=== PATIENT | female | born 1950 | race Caucasian/White ===

== ENCOUNTER → 2019-09-03 09:04 | Outpatient (BNVA) | payer MEDICARE, OTHER, SELFPAY | PROVIDERS: Family Provider Nurse Practitioner; PCP Nurse Practitioner; Visit Provider Nurse Practitioner | DX: R39.9 Unspecified symptoms and signs involving the genitourinary system (principal); E78.2 Mixed hyperlipidemia; I10 Essential (primary) hypertension | CPT/HCPCS: 80053; 80061; 81003 ==

== ENCOUNTER → 2019-09-24 09:51 | Outpatient (BNVA) | payer MEDICARE, OTHER, SELFPAY | PROVIDERS: Family Provider Nurse Practitioner; PCP Nurse Practitioner; Visit Provider Nurse Practitioner | DX: R10.9 Unspecified abdominal pain (principal); R31.9 Hematuria, unspecified | CPT/HCPCS: 74018; 81000 ==

== ENCOUNTER 2019-09-25 08:10 | Inpatient (IN) | payer MEDICARE, OTHER, SELFPAY ==
[2019-09-25] VITALS (23 sets, daily range): BP systolic 109–165; BP diastolic 66–98; PULSE 69–115; RESP 13–24; TEMP 36.8–38.2; O2SAT 91–97; BMI 28.8
--- NOTE | 2019-09-25 | SCC_ITS ---
PROCEDURE DONE: Open-ended ureteral catheter used to inject a small amount of contrast showing no obvious S. 7 [place] by 26 cm double-pigtail stent without string 33.0 seconds of fluoroscopic guidance, for a cumulative dose of 8.31 mGy, was provided to Dr. Clement by the radiology department. C-arm images of the abdomen were saved for the patient's permanent record. EMELY
--- NOTE | 2019-09-25 08:22 | ED_ITS ---
HPI - GI Bleed General: Stated complaint: BLOOD IN PREMA, LOWER ABD PAIN Time Seen by Provider: 09/25/19 08:12 PFSH ED PFSH: Medical History Acid reflux Anxiety Continuous dependence on cigarette smoking Essential hypertension Mixed hyperlipidemia Surgical History History of bilateral tubal ligation age 36 History of hysterectomy for benign disease age 41 History of tonsillectomy age 19 Family History Sister Cancer breast Grandmother Myocardial infarct Grandfather Myocardial infarct Social History Smoking and tobacco status: former smoker Smoking risk assessment/counseling performed?: No Alcohol intake: never Desire information about alcohol rehabilitation?: No Counseling given: No Desire information about substance/drug rehabilitation?: No Counseling given: No Household members: spouse Marital status: Number of children: 3 History of recent travel: No Current gender identity: Female Discharge Plan Discharge Prescriptions: No Action aspirin [Aspir-81] 81 mg tablet,delayed release (DR/EC) 81 mg PO ONCE RF: 0 amlodipine 5 mg tablet 5 mg PO DAILY Qty: 90 RF: 1 famotidine [Pepcid] 40 mg tablet 40 mg PO DAILY Qty: 90 RF: 1 pravastatin 20 mg tablet 20 mg PO DAILY Qty: 90 RF: 1 sertraline 50 mg tablet 50 mg PO DAILY Qty: 90 RF: 1 telmisartan 80 mg tablet 80 mg PO DAILY Qty: 90 RF: 1 mupirocin 2 % ointment 1 applic TOPICAL BID Qty: 22 RF: 1 nitrofurantoin monohyd/m-cryst [Macrobid] 100 mg capsule 100 mg PO Q12H 7 Days Qty: 14 RF: 0 Coding Level of Care Code ED Silo Painter for Yesenia Chin
--- NOTE | 2019-09-25 08:31 | CT_ITS ---
WS: [id number] CT ABDOMEN AND PELVIS NONCONTRAST HISTORY: L flank/L pelvic pain; hematuria TECHNIQUE: Imaging performed through the abdomen and pelvis. Coronal and sagittal reformats are submi tted. All CT scans at [facility] use at least one of these dose optimization techniques: automated exposure control; mA and/or kV adjustment per patient size (includes targeted exams where d ose is matched to clinical indication); or iterative reconstruction. DLP: 1558.41 mGy.cm COMPARISON: None available. Lower thorax: Chronic emphysematous changes at the lung bases. Normal size heart. Small hiatal hernia . Liver: Liver is top normal size and hepatic steatosis. There are scattered hypodensities RIGHT lobe t he liver measures 2.9 cm. No bile duct dilatation. Gallbladder: Normally distended with a few stones present. No adjacent inflammation. Pancreas: Normal. Spleen: Normal. Adrenal glands: Bilateral adrenal nodules. Hounsfield units are decreased suggesting these are benign adenomata. Right kidney: Normal size kidney with moderate perinephric stranding. Nonobstructing calcifications i n the central renal pelvis. No ureteral calcification. Left kidney: Marked enlargement and perinephric stranding surrounding the LEFT kidney. Moderate dilat ation of the renal pelvis. There is mixed density within the renal pelvis suggesting probably some bl eeding and hematuria. There is significant periureteral stranding. No definite ureteral stone is iden tified. Significant change in caliber of the LEFT ureter at the L4-5 disc level. There are several calcifications overlying the psoas muscle which I believe are in the LEFT venous pl exus. Similar findings on the RIGHT side. Extensive atherosclerosis of aorta. There are small retroperitoneal lymph nodes. Majority of these lymph nodes are rounded the aorta just below the level of the renal artery and vein. Lymph nodes are less than 1 cm. GI tract: Normal appendix. Mild fecal retention and constipation. No obstruction. Numerous diverticul a throughout the sigmoid colon. Abdominal wall: Small fat-containing umbilical hernia. Pelvis: Minimally distended urinary bladder. No free fluid or adenopathy. Osseous structures: L4 anterolisthesis by 5 mm. Mild increase in the lumbar lordosis. Notified CODY Tripathi at 09/25/2019 9:[address]/CT kidney stone [id number] IMPRESSION: 1. Significant perinephric stranding and renal enlargement, edema and fluid schulz rrounding the LEFT kidney with moderate hydronephrosis. Increased density in th e renal pelvis and proximal ureter. Most likely due to blood within the urologi jamshid system. 2. Significant change in caliber of the LEFT ureter at the level of the L4-5 d isc space. No stone is identified. Possibility of a stricture, nonradiopaque st one or neoplasm should be considered. Increased density within the ureter could be blood or small fragments of stones. 3. There are several stones overlying the LEFT psoas muscle which I believe ar e venous related and not within the ureter. The ureter progresses just medial t o these calcifications. Also similar calcifications noted on the RIGHT side. 4. Additional bilateral nephrolithiasis. 5. Cholelithiasis. 6. Atherosclerosis aorta. 7. Significant sigmoid diverticulosis without acute diverticulitis.
--- NOTE | 2019-09-25 08:34 | ED_ITS ---
HPI - Female Genitourinary General: Chief complaint: Urogenital-Female Stated complaint: BLOOD IN PREMA, LOWER ABD PAIN Time Seen by Provider: 09/25/19 08:12 Source: patient Mode of arrival: ambulatory Limitations: no limitations History of Present Illness: HPI Narrative: Patient is a 68-year-old female who presents to ED today with a complaint of left lower abdominal/pelvic pain that began yesterday evening fairly suddenly. She states since pain has began she has noticed blood in her urine, urinary frequency and hesitancy. She tells me she does have a history of kidney stones however this felt slightly different. She is not having any changes to her bowel movements. She has not been running fevers. She complains of some nausea without vomiting. Onset (ago): hour(s) Severity: moderate Quality of pain: sharp Consistency: constant Vaginal discharge: none Vaginal bleeding: none Urinary symptoms: Difficulty Urinating, Frequency, Hematuria and Urgency Relieving factors: none Associated symptoms: Reports no associated symptoms, abdominal pain and nausea; Deny headache(s) or vaginal discharge Treatment prior to arrival: none Patient : No Review of Systems Const: Denies: fever(s), chills or body aches Card: Denies: chest pain Resp: Denies: dyspnea GI: Reports: abdominal pain and nausea; Denies: vomiting, diarrhea or change in bowel habits : Reports: difficulty voiding, urinary frequency, urinary hesitancy and hematuria; Denies: flank pain, dysuria, urinary urgency, vaginal odor, vaginal bleeding or vaginal discharge Musc: Denies: neck pain or back pain Neuro: Denies: headache(s) PFS ED PFSH: Medical History (Updated 09/25/19 @ 09:58 by CODY Tripathi) Acid reflux Anxiety Continuous dependence on cigarette smoking Essential hypertension Mixed hyperlipidemia Surgical History History of bilateral tubal ligation age 36 History of hysterectomy for benign disease age 41 History of tonsillectomy age 19 Family History Sister Cancer breast Grandmother Myocardial infarct Grandfather Myocardial infarct Social History Smoking and tobacco status: former smoker Smoking risk assessment/counseling performed?: No Alcohol intake: never Desire information about alcohol rehabilitation?: No Counseling given: No Desire information about substance/drug rehabilitation?: No Counseling given: No Household members: spouse Marital status: Number of children: 3 History of recent travel: No Current gender identity: Female Physical Exam Const: COMMON NORMALS: no acute distress, patient oriented x3, no limitations and alert Resp: COMMON NORMALS: normal respiratory effort and clear to auscultation bilaterally AUSCULTATION: clear to auscultation bilaterally Cardio: COMMON NORMALS: regular rate and regular rhythm RATE: regular rate RHYTHM: regular rhythm GI: COMMON NORMALS: Normal to inspection, nondistended, normoactive bowel sounds present, Soft to palpation, No hepatosplenomegaly present and no masses PALPATION: Yes Soft to palpation, Yes Tenderness to palpation present (GI) (L lower pelvis) and Yes No hepatosplenomegaly present : BLADDER/KIDNEY EXAM: Yes CVA tenderness (mild L) Back/Pelvis: GENERAL BACK: Yes CVA tenderness (mild L) Extremity: COMMON NORMALS: normal to inspection Neuro: COMMON NORMALS: patient oriented x3 SENSORIUM/ORIENTATION: Yes alert Skin: COMMON NORMALS: no rashes or lesions noted GENERAL SKIN EXAM: no rashes or lesions noted Course Consultations: Consultation #1: Dr. Clement-recommend admit to hospitalist and he will consult on patient Consultation #2: Dr. Jackson has spoken to Dr. Wells for admission Vital Signs: Vital signs: Vital Signs Temperature 98.8 F 09/25/19 08:14 Pulse Rate 95 09/25/19 09:29 Respiratory Rate 18 09/25/19 09:29 Blood Pressure 165/98 09/25/19 09:29 Pulse Oximetry 97 09/25/19 09:29 MDM - Female MDM Narrative: Medical decision making narrative: Patient's UA showing 3+ blood, 2+ leuks with too numerous to count WBCs. On patient's CT scan she has extensive enlargement, perinephric and periureteral stranding, and bleeding within her right renal pelvis. There appears to be a stricture in her left mid ureter. No definitive stone is visualized at this time. Spoke to Dr. Clement who will consult on patient. Dr. Wells is agreeable to admit patient. Lab Data: Labs: Lab Results 09/25/19 09/25/19 09/25/19 Range/Units 08:46 08:46 08:49 WBC 10.5 H (4.0-10.0) 10^3/ uL RBC 4.41 (4.1-5.3) 10^6/u L Hgb 13.9 (11.5-15.3) g/dL Hct 41.2 (37.0-47.0) % MCV 93.4 (81-99) fL MCH 31.5 (28.0-34.0) pg MCHC 33.7 (30.0-36.0) g/dL RDW 11.5 L (12.1-15.1) % Plt Count 223 (130-400) 10^3/c mm MPV 9.5 (7.4-10.4) fL Neut % (Auto) 85.8 % Lymph % (Auto) 7.9 % [place] % (Auto) 5.1 % Eos % (Auto) 0.1 % Baso % (Auto) 0.3 % Neut # (Auto) 9.02 H (1.8-7.7) 10^3/u L Lymph # (Auto) 0.8 (0.8-4.8) 10^3/u L [place] # (Auto) 0.5 (0.2-0.9) 10^3/u L Eos # (Auto) 0.0 (0.0-0.8) 10^3/u L Baso # (Auto) 0.0 (0.0-0.1) 10^3/u L Nucleated RBC % (a uto) 0 % Nucleated RBCs # 0.0 /100WBC Sodium 135 L (136-145) mmol/L Potassium 4.0 (3.5-5.1) mmol/L Chloride 101 (98-107) mmol/L Carbon Dioxide 20 L (22-29) mmol/L Anion Gap 18.0 (5-19) BUN 14 (8-23) mg/dL Creatinine 0.9 (0.5-0.9) mg/dL GFR Calculation 62.5 L (90-130) mL/min Glucose 168 H (65-115) mg/dL Calculated Osmolal ity 280 L (285-295) mOsm/k g Calcium 8.7 (8.5-10.5) mg/dL Total Bilirubin 1.1 (0.15-1.2) mg/dL AST 28 (0-32) U/L ALT 21 (0-33) U/L Alkaline Phosphata se 83 (35-105) IU/L Total Protein 7.6 (6.6-8.7) g/dL Albumin 4.4 (3.5-5.2) g/dL Globulin 3.2 (1.3-4.6) g/dL Urine Color Yellow (Yellow) Urine Appearance Cloudy (CLEAR) Urine pH 5 (5-7) Ur Specific Gravit y 1.015 (1.005-1.030) Urine Protein Neg (Negative) Urine Glucose (UA) Norm (Normal) Urine Ketones Negative (Negative) Urine Blood 3+ H (Negative) Urine Nitrate Negative (Negative) Urine Bilirubin Neg (NEGATIVE) Urine Urobilinogen Norm (Negative) mg/dL Ur Leukocyte Jolly ase 2+ H (Negative) Urine RBC 5-10 H (0-2) /hpf Urine WBC Too numerous to c nt H (0-5) /hpf Ur Squamous Epith Cells 5-10 H (0-5) Ur Transition Epit h Cell 0-4 /hpf Amorphous Sediment Not Reportable Urine Bacteria 1+ H (NONE) Imaging Data: CT Abd/Pel: Radiologist's impression: [place] [address] CT Scan Report Signed Patient: Patt Baptiste Unit #: [id number] : 1950 Age/Sex: 68 / F ADM Date: 09/25/19 Loc: ER Room/Bed: Attending Dr: Ordering Provider/Ordering MD: Susu Portillo Date of Service: 09/25/19 Procedure(s): CT kidney stone 13794 Accession Number(s): [id number] Report Number: [id number] WS: [id number] CT ABDOMEN AND PELVIS NONCONTRAST HISTORY: L flank/L pelvic pain; hematuria TECHNIQUE: Imaging performed through the abdomen and pelvis. Coronal and sagittal reformats are submitted. All CT scans at [facility] use at least one of these dose optimization techniques: automated exposure control; mA and/or kV adjustment per patient size (includes targeted exams where dose is matched to clinical indication); or iterative reconstruction. DLP: 1558.41 mGy.cm COMPARISON: None available. Lower thorax: Chronic emphysematous changes at the lung bases. Normal size heart. Small hiatal hernia. Liver: Liver is top normal size and hepatic steatosis. There are scattered hypodensities RIGHT lobe the liver measures 2.9 cm. No bile duct dilatation. Gallbladder: Normally distended with a few stones present. No adjacent inflammation. Pancreas: Normal. Spleen: Normal. Adrenal glands: Bilateral adrenal nodules. Hounsfield units are decreased suggesting these are benign adenomata. Right kidney: Normal size kidney with moderate perinephric stranding. Nonobstructing calcifications in the central renal pelvis. No ureteral calcification. Left kidney: Marked enlargement and perinephric stranding surrounding the LEFT kidney. Moderate dilatation of the renal pelvis. There is mixed density within the renal pelvis suggesting probably some bleeding and hematuria. There is significant periureteral stranding. No definite ureteral stone is identified. Significant change in caliber of the LEFT ureter at the L4-5 disc level. There are several calcifications overlying the psoas muscle which I believe are in the LEFT venous plexus. Similar findings on the RIGHT side. Extensive atherosclerosis of aorta. There are small retroperitoneal lymph nodes. Majority of these lymph nodes are rounded the aorta just below the level of the renal artery and vein. Lymph nodes are less than 1 cm. GI tract: Normal appendix. Mild fecal retention and constipation. No obstruc tion. Numerous diverticula throughout the sigmoid colon. Abdominal wall: Small fat-containing umbilical hernia. Pelvis: Minimally distended urinary bladder. No free fluid or adenopathy. Osseous structures: L4 anterolisthesis by 5 mm. Mild increase in the lumbar lordosis. Notified CODY Tripathi at 09/25/2019 9:[address]/CT kidney stone [id number] IMPRESSION: 1. Significant perinephric stranding and renal enlargement, edema and fluid surrounding the LEFT kidney with moderate hydronephrosis. Increased density in the renal pelvis and proximal ureter. Most likely due to blood within the urological system. 2. Significant change in caliber of the LEFT ureter at the level of the L4-5 disc space. No stone is identified. Possibility of a stricture, nonradiopaque stone or neoplasm should be considered. Increased density within the ureter could be blood or small fragments of stones. 3. There are several stones overlying the LEFT psoas muscle which I believe are venous related and not within the ureter. The ureter progresses just medial to these calcifications. Also similar ca lcifications noted on the RIGHT side. 4. Additional bilateral nephrolithiasis. 5. Cholelithiasis. 6. Atherosclerosis aorta. 7. Significant sigmoid diverticulosis without acute diverticulitis. Dictated By: Janice Pierce DO Signed By: Janice Pierce DO Signed Date/Time: 09/25/19922 DD/ 3 Discharge Plan Discharge Patient Disposition: Admitted As Inpatient Clinical Impression: Pyelonephritis of left kidney, Stricture of left ureter Condition: Stable Referrals: Keya Olivier, MUSIC WORKER-C [Primary Care Provider] - Coding Level of Care Code ED Production Intern for Chg Fwd Exam Detailed
[2019-09-25 08:53] LABS: Basophils % 0.3 %; Eosinophils % 0.1 %; Hematocrit 41.2 % (37.0-47.0); Hemoglobin 13.9 g/dL (11.5-15.3); Lymphocytes # 0.8 10^3/uL (0.8-4.8); Lymphocytes % 7.9 %; Mean Corpuscular HGB Conc 33.7 g/dL (30.0-36.0); Mean Corpuscular Hemoglobin 31.5 pg (28.0-34.0); Mean Corpuscular Volume 93.4 fL (81-99); Mean Platelet Volume 9.5 fL (7.4-10.4); Monocytes # 0.5 10^3/uL (0.2-0.9); Monocytes % 5.1 %; Neutrophils # 9.02 10^3/uL (1.8-7.7); Neutrophils % 85.8 %; Nucleated Red Blood Cells % 0 %; Platelet Count 223 10^3/cmm (130-400); Red Blood Count 4.41 10^6/uL (4.1-5.3); Red Cell Distribution Width 11.5 % (12.1-15.1); White Blood Count 10.5 10^3/uL (4.0-10.0)
[2019-09-25 09:06] LABS: Alanine Aminotransferase 21 U/L (0-33); Albumin Level 4.4 g/dL (3.5-5.2); Alkaline Phosphatase 83 IU/L (35-105); Aspartate Amino Transferase 28 U/L (0-32); Blood Urea Nitrogen 14 mg/dL (8-23); Calcium 8.7 mg/dL (8.5-10.5); Carbon Dioxide 20 mmol/L (22-29); Chloride 101 mmol/L (98-107); Creatinine Clr Calc Pharmacy 62.8049; Globulin 3.2 g/dL (1.3-4.6); Glomerular Filtration Rate 62.5 mL/min (90-130); Glucose 168 mg/dL (65-115); Osmolality Calculated 280 mOsm/kg (285-295); Sodium 135 mmol/L (136-145); Total Bilirubin 1.1 mg/dL (0.15-1.2); Total Protein 7.6 g/dL (6.6-8.7)
[2019-09-25 09:23] LABS: Bilirubin Urine Neg (NEGATIVE); Blood Urine 3+ (Negative); Glucose Urine UA Norm (Normal); Ketones Urine Negative (Negative); Nitrate Urine Negative (Negative); Protein Urine Neg (Negative); Specific Gravity, Urine 1.015 (1.005-1.030); Urine Appearance Cloudy (CLEAR); Urine Color Yellow (Yellow); pH Urine 5 (5-7)
[2019-09-25 09:24] LABS: Add Urine Microscopic? YES; Leukocyte Esterase Urine 2+ (Negative); Urobilinogen Urine Norm (Negative)
[2019-09-25 09:26] LABS: Bacteria Urine 1+; Transitional Epi Cells Urine 0-4 /hpf; WBC Urine TOO NUMEROUS TO CNT /hpf (0-5)
[2019-09-25 09:27] LABS: Add Urine Culture? Yes
[2019-09-25] MEDS: ondansetron 2 mg/ML SDV 2 mL 4 MG IVP (09:27)
[2019-09-25] MEDS: sodium chloride 0.9% 1,000 ML 999 ML IV (09:27)
[2019-09-25] MEDS: morphine 4 mg/mL SDV 1 mL IVP (09:28)
[2019-09-25] MEDS: cefTRIAXone 1,000 MG in sodium chloride 0.9% (plus) 50 ML 100 MG IV ×2 (09:37→14:58)
[2019-09-25 10:30] LABS: Lactic Sepsis W/Reflex 0.2 mmol/L (0.5-2.2)
[2019-09-25] MEDS: sodium chloride 0.9% 1,000 ML 150 ML IV ×3 (11:03→20:53)
--- NOTE | 2019-09-25 11:18 | P.HP_ITS ---
Providers/Chief Complaint Admitting Physician: Claudia Wells DO Primary Care Provider: CHIN Milligan-C Chief Complaint: BLOOD IN PREMA, LOWER ABD PAIN History of Present Illness Patt Baptiste is a 68 year old female with a past medical history of hypertension, GERD, hyperlipidemia and history of nephrolithiasis that presented to the emergency department today for left-sided flank pain and abdominal pain. She reported that she had been treated for UTI approximately 1 week ago given Macrobid. She stated that she is continued to have some left flank pain that started last night and has continued to progress. Patient reported that she was unable to sleep last night due to the pain and nausea, no vomiting but is continued to have nausea. Denies any fevers but reports chills. Denies any sick contacts no exposure to anyone under investigation are positive for COVID- 19. Patient denies any chest pain or shortness of breath, no cough or sputum production. Reports that she has had hematuria over the past several days that is now improved. She does report a history of kidney stones approximately 20 years ago that required stent and lithotripsy. Patient was seen and evaluated in the emergency department noted to have concern for pyelonephritis and admitted to the hospital for further evaluation and treatment, Dr. Clement was consulted while patient was in the ED, she was treated with IV Rocephin. Review of Systems Const: Reports: chills; Denies: fever(s) Eyes: Denies: change in vision ENMT: Denies: nasal congestion Card: Denies: chest pain, palpitations or edema Resp: Denies: dyspnea, productive cough or hemoptysis GI: Reports: nausea and constipation; Denies: abdominal pain, vomiting, diarrhea, hematochezia or melena : Reports: flank pain, urinary frequency and hematuria; Denies: dysuria Musc: Denies: extremity pain or muscle cramps Skin/Breast: Denies: rash or new lesions Neuro: Denies: headache(s) or dizziness Psych: Denies: anxiety or depression Endo: Denies: polyuria or hot flashes Dereck/Lymph: Denies: easy bruising or easy bleeding Medications/Allergies Home Medications Medication Instructions Recorded Confirmed Last Taken Type aspirin 81 mg tablet,delayed 81 mg PO DAILY 03/18/19 09/25/19 09/24/19 History release amlodipine 5 mg tablet 5 mg PO DAILY #90 tab 09/04/19 09/25/19 09/24/19 Rx famotidine 40 mg tablet 40 mg PO DAILY #90 tab 09/04/19 09/25/19 09/24/19 Rx pravastatin 20 mg tablet 20 mg PO DAILY #90 tab 09/04/19 09/25/19 09/24/19 Rx sertraline 50 mg tablet 50 mg PO DAILY #90 tab 09/04/19 09/25/19 09/25/19 Rx 25 MG telmisartan 80 mg tablet 80 mg PO DAILY #90 tab 09/04/19 09/25/19 09/25/19 Rx Vitamin D3 1 tab PO DAILY 09/25/19 09/25/19 Unknown History glucosamine sulfate [Glucosamine] 500 mg PO DAILY 09/25/19 09/25/19 Unknown History multivitamin [Multiple Vitamins] 1 tab PO DAILY 09/25/19 09/25/19 Unknown History mupirocin 1 applic TOPICAL BID PRN 09/25/19 09/25/19 Unknown History turmeric 400 mg PO DAILY 09/25/19 09/25/19 Unknown History Allergies Allergy/AdvReac Type Severity Reaction Status Date / Time No Known Allergies Allergy Verified 09/25/19 09:22 PFSH Acute PFSH: Medical History Acid reflux Anxiety Essential hypertension Mixed hyperlipidemia Surgical History History of bilateral tubal ligation age 36 History of hysterectomy for benign disease age 41 History of lithotripsy History of tonsillectomy age 19 Status post placement of ureteral stent Family History Sister Cancer breast Grandmother Myocardial infarct Grandfather Myocardial infarct Social History Smoking and tobacco status: former smoker Smoking risk assessment/counseling performed?: No Alcohol intake: never Desire information about alcohol rehabilitation?: No Counseling given: No Desire information about substance/drug rehabilitation?: No Counseling given: No Household members: spouse Marital status: Number of children: 3 History of recent travel: No Current gender identity: Female Vitals/I&O/Wt Last Vital Signs Temp 98.5 F 07/23/20 11:05 Pulse 86 09/25/19 11:05 Resp 22 H 09/25/19 11:05 BP 163/67 09/25/19 11:05 Pulse Ox 97 09/25/19 10:32 09/24/19 09/25/19 09/25/19 22:59 06:59 14:59 Intake Total 1050 / 1050 Balance 1050 / 1050 Weight last 48 hrs Weight 78.471 kg Physical Exam Const: COMMON NORMALS: patient oriented x3 and alert GENERAL APPEARANCE: cooperative ORIENTATION/CONSCIOUSNESS: Yes awake, Yes oriented to person, Yes oriented to place and Yes oriented to time HENMT: COMMON NORMALS: normocephalic and atraumatic HEAD & SCALP: normocephalic and atraumatic Eye: COMMON NORMALS: Equal, round and reactive pupils present PUPIL: Yes Equal, round and reactive pupils present Neck/C-Spine: COMMON NORMALS: supple GENERAL: Yes normal visual inspection Resp: COMMON NORMALS: normal respiratory effort and clear to auscultation bilaterally EFFORT & INSPECTION: Yes able to speak in complete sentences AUSCULTATION: clear to auscultation bilaterally, no rhonchi and no wheezes Cardio: COMMON NORMALS: regular rate, regular rhythm and No murmurs present (Cardio) RATE: regular rate RHYTHM: regular rhythm GI: COMMON NORMALS: Soft to palpation INSPECTION: No abdominal distension AUSCULTATION: Yes normoactive bowel sounds PALPATION: Yes Soft to palpation OTHER: Tenderness to palpation in the left middle abdomen : OTHER: CVA tenderness on the Left Extremity: COMMON NORMALS: no clubbing, cyanosis or edema and no calf tenderness Neuro: COMMON NORMALS: patient oriented x3, CN's II-XII intact bilaterally, moves all extremities and no focal motor deficits SENSORIUM/ORIENTATION: Yes alert, Yes oriented to person, Yes oriented to place and Yes oriented to time SPEECH: speech normal Psych: COMMON NORMALS: mental status grossly normal and cooperative Skin: COMMON NORMALS: no rashes or lesions noted GENERAL SKIN EXAM: no rashes or lesions noted Data : 09/25/19 08:46 09/25/19 08:46 Micro: Microbiology 09/25/19 10:40 Blood Culture - Preliminary Blood SPECIMEN COLLECTED 09/25/19 08:46 Blood Culture - Preliminary Blood SPECIMEN COLLECTED CT Abd/Pel: I personally reviewed and interpreted this imaging study as follows: Radiologist's impression: IMPRESSION: 1. Significant perinephric stranding and renal enlargement, edema and fluid surrounding the LEFT kidney with moderate hydronephrosis. Increased density in the renal pelvis and proximal ureter. Most likely due to blood within the urological system. 2. Significant change in caliber of the LEFT ureter at the level of the L4-5 disc space. No stone is identified. Possibility of a stricture, nonradiopaque stone or neoplasm should be considered. Increased density within the ureter could be blood or small fragments of stones. 3. There are several stones overlying the LEFT psoas muscle which I believe are venous related and not within the ureter. The ureter progresses just medial to these calcifications. Also similar calcifications noted on the RIGHT side. 4. Additional bilateral nephrolithiasis. 5. Cholelithiasis. 6. Atherosclerosis aorta. 7. Significant sigmoid diverticulosis without acute diverticulitis. A&P Assessment and plan (1) Pyelonephritis of left kidney: Continue on Rocephin Admit to [facility] IV fluids, pain control and antiemetics Dr. Clement consulted for further evaluation and treatment recommendations. Appreciate consultation and recommendations and assistance in patient's care. Patient to remain n.p.o. at this time until urology evaluation Status: Acute (2) Stricture of left ureter: Urology consultation with further plan as above Status: Acute (3) Essential hypertension: Continue home amlodipine 5 mg daily, continue home ARB Status: Chronic (4) Mixed hyperlipidemia: Continue home pravastatin Status: Chronic (5) Acid reflux: Continue famotidine Status: Chronic Qualifiers: Esophagitis presence: without esophagitis Qualified Code(s): K21.9 - Gastro-esophageal reflux disease without esophagitis Additional A&P Information Incidental finding of cholelithiasis: Recommend outpatient follow-up Diverticulosis without diverticulitis, recommend continued screening colonoscopies Hyperglycemia without a history of diabetes mellitus, will check hemoglobin A1c Hematuria, secondary to above, will continue to follow along with urology recommendations DVT prophylaxis: SCDs, no pharmacologic prophylaxis due to concern for hematuria and anticipated surgery Diet: NPO CODE STATUS: Full code Attestations Medical Necessity Statement*: Patient requires hospitalization due to pyelonephritis with ureteral stricture and moderate hydronephrosis, expected stay greater than 2 midnights 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
[2019-09-25] MEDS: morphine 4 mg/mL SDV 1 mL 2 MG IVP (12:10)
[2019-09-25] MEDS: amlodipine 5 mg Tablet PO (12:11)
--- NOTE | 2019-09-25 13:02 | ANES.PREANE2 ---
Pre-Anesthetic Assessment Pre-Anesthetic Assessment: Height/Weight: Height 1.65 m Weight 78.471 kg Temp Pulse Resp BP Pulse Ox 98.6 F 107 H 24 H 162/78 93 09/25/19 12:00 09/25/19 12:51 09/25/19 12:10 09/25/19 12:00 09/25/19 12:51 Preop Diagnosis: stricture Familial anesthetic complications: Coughed a lot during one anesthetic Was Beta Dale taken within 24 hours: N/A Last intake: NPO > 8 hrs Social: Social History: Alcohol (4 beers a day) Comment: former smoker Exam: Pre-Anes Outpt Exam: alert, oriented x 3, clear to auscultation bilaterally and regular rate & rhythm Airway: Cervical ROM: WNL MP: 2 Dentition: Full Pulmonary: Pulmonary: None reported CV/HEM: CV/HEM: HTN GI: GI: GERD Metabolic: Metabolic: Hyperlipidemia Anesthetic Plan: ASA status: 2 Anesthesia: General Risk of > 500 ml blood loss (7ml/kg in children): No Meds/Allergies Current Medications: Current Medications Generic Name Dose Route Start Last Admin Trade Name Freq PRN Reason Stop Dose Admin Amlodipine Besylat e 5 mg 09/25/19 11:30 09/25/19 12:11 Norvasc PO 5 mg DAILY MALU Administration Sodium Chloride 1,000 mls @ 150 m ls/hr 09/25/19 10:00 09/25/19 11:03 Sodium Chloride 0.9% IV 150 mls/hr .Q6H40M MALU Administration PFSH Anesthesia PFSH: Medical History Acid reflux Anxiety Essential hypertension Mixed hyperlipidemia Surgical History History of bilateral tubal ligation age 36 History of hysterectomy for benign disease age 41 History of lithotripsy History of tonsillectomy age 19 Status post placement of ureteral stent Family History Sister Cancer breast Grandmother Myocardial infarct Grandfather Myocardial infarct Social History Smoking and tobacco status: former smoker Smoking risk assessment/counseling performed?: No Alcohol intake: never Desire information about alcohol rehabilitation?: No Counseling given: No Desire information about substance/drug rehabilitation?: No Counseling given: No Household members: spouse Marital status: Number of children: 3 History of recent travel: No Current gender identity: Female Data Anesthesia CBC & Chem 7: 09/25/19 08:46 09/25/19 08:46 Other Labs: Laboratory Results - last 48 hr 09/25/19 09/25/19 09/25/19 08:46 08:46 08:46 WBC 10.5 H RBC 4.41 Hgb 13.9 Hct 41.2 MCV 93.4 MCH 31.5 MCHC 33.7 RDW 11.5 L Plt Count 223 MPV 9.5 Neut % (Auto) 85.8 Lymph % (Auto) 7.9 Scott % (Auto) 5.1 Eos % (Auto) 0.1 Baso % (Auto) 0.3 Neut # (Auto) 9.02 H Lymph # (Auto) 0.8 Scott # (Auto) 0.5 Eos # (Auto) 0.0 Baso # (Auto) 0.0 Nucleated RBC % (auto) 0 Nucleated RBCs # 0.0 Sodium 135 L Potassium 4.0 Chloride 101 Carbon Dioxide 20 L Anion Gap 18.0 BUN 14 Creatinine 0.9 GFR Calculation 62.5 L Glucose 168 H Calculated Osmolality 280 L Lactic Acid 0.2 L Calcium 8.7 Total Bilirubin 1.1 AST 28 ALT 21 Alkaline Phosphatase 83 Total Protein 7.6 Albumin 4.4 Globulin 3.2 Urine Color Urine Appearance Urine pH Ur Specific [place] Urine Protein Urine Glucose (UA) Urine Ketones Urine Blood Urine Nitrate Urine Bilirubin Urine Urobilinogen Ur Leukocyte Esterase Urine RBC Urine WBC Ur Squamous Epith Cells Ur Transition Epith Cell Amorphous Sediment Urine Bacteria 09/25/19 08:49 WBC RBC Hgb Hct MCV MCH MCHC RDW Plt Count MPV Neut % (Auto) Lymph % (Auto) Scott % (Auto) Eos % (Auto) Baso % (Auto) Neut # (Auto) Lymph # (Auto) Scott # (Auto) Eos # (Auto) Baso # (Auto) Nucleated RBC % (auto) Nucleated RBCs # Sodium Potassium Chloride Carbon Dioxide Anion Gap BUN Creatinine GFR Calculation Glucose Calculated Osmolality Lactic Acid Calcium Total Bilirubin AST ALT Alkaline Phosphatase Total Protein Albumin Globulin Urine Color Yellow Urine Appearance Cloudy Urine pH 5 Ur Specific [place] 1.015 Urine Protein Neg Urine Glucose (UA) Norm Urine Ketones Negative Urine Blood 3+ H Urine Nitrate Negative Urine Bilirubin Neg Urine Urobilinogen Norm Ur Leukocyte Esterase 2+ H Urine RBC 5-10 H Urine WBC Too numerous to cnt H Ur Squamous Epith Cells 5-10 H Ur Transition Epith Cell 0-4 Amorphous Sediment Not Reportable Urine Bacteria 1+ H Micro: Microbiology 09/25/19 10:40 Blood Culture - Preliminary Blood SPECIMEN COLLECTED 09/25/19 08:46 Blood Culture - Preliminary Blood SPECIMEN COLLECTED Cardiac Studies: No Data to Display
--- NOTE | 2019-09-25 13:02 | PM.MISC ---
Miscellaneous Note Note: Full consult to follow. Consulted by ER and hospitalist for severe left renal colicky symptoms, recent UTI, gross hematuria. Clinical picture of obstructive pyelonephritis of unclear etiology. CT scan shows narrowing in the mid ureter and hyperdense filling of the ureter proximal to that point either consistent with blood, purulent sediment, or possible neoplasm. Urine is consistent with an infection. Tachycardic with elevated respiratory rate and her white count is elevated. Recommended that we have a left ureteral stent placed emergently. She has given informed consent. More to follow.
--- NOTE | 2019-09-25 14:34 | SC_ITS ---
WS: [id number] C-arm fluoroscopy of left kidney, 09/25/2019 Clinical Data: stent placement Comparison: KUB, 09/24/2019. Findings: There is a ureteral stent placement is in the left renal pelvis. SC/C-arm FL for Urology Impression: Placement of left ureteral stent in left renal pelvis.
[2019-09-25] MEDS: iohexol 300 mg/mL 50 mL Btl (OR ONLY) XX (15:26)
--- NOTE | 2019-09-25 15:40 | PM.CONSULT ---
Providers/Reason For Consult Consulting Physican/Specialty*: Urology/Clement Reason for Consult*: Left ureteral obstruction possible obstructive pyelonephritis Attending Physician: Claudia Wells DO Primary Care Provider: IVAN Milligan History of Present Illness History of Present Illness Patt Baptiste is a 68 year old female who I evaluated for the first time today at the request of the emergency department. She presented with severe left flank pain consistent with renal colic and a CT scan demonstrated high-grade obstruction of the left collecting system with what appeared to be hyperdense fluid in the proximal ureter consistent with active acute bleeding. Is a distinct transition from dilated ureter to normal-appearing ureter in the mid ureteral area with no obvious stone in that location. No other pathology distal to that point was identified. Her pain was poorly controlled despite aggressive management. Urinalysis was suspicious for infection. She was admitted for diagnosis of obstructive pyelonephritis. She has been started on antibiotics. Prior to this admission she had been seen a week or so ago with symptoms of UTI including dysuria, frequency urgency and lower abdominal pain. She had no upper urinary tract symptoms at that time and was placed on an antibiotic with improvement in the symptoms. A few days apparently after quitting the antibiotics she developed flank pain, gross hematuria and some increasing lower urinary tract symptoms again. The flank pain has increasingly worsened along with nausea. Work-up included a urinalysis that showed too numerous to count white cells, 5-10 red cells, 5-10 squamous epithelial cells and 1+ bacteria. White count was 10.5. She was not anemic Chemistry studies showed a bicarbonate of 20, creatinine is 0.9, normal liver functions. I was consulted for further evaluation of this obstruction and concern for obstructive pyelonephritis. After reviewing with her and discussing the films and the additional work-up data I have recommended an emergency stenting of the left collecting system to be followed by continued antibiotics and then a relook in a week to 2 weeks evaluate the collecting system at that point. It is highly possible that this is an obstruction related to infectious sediment given the lack of stone seen on the CT scan but with the bleeding and the hyperdense material in the proximal ureter cannot rule out a neoplastic process. She expressed understanding and has given informed consent to proceed. Review of Systems Const: Reports: chills and malaise; Denies: fever(s) Eyes: Denies: change in vision or blurry vision ENMT: Denies: throat pain or sinus pain Card: Denies: chest pain, palpitations or swelling of feet/ankles Resp: Denies: dyspnea, productive cough, non-productive cough or wheezing GI: Reports: abdominal pain and nausea; Denies: hematemesis or dysphagia : Reports: flank pain and hematuria Musc: Denies: joint redness or joint warmth Skin/Breast: Denies: rash or sores Neuro: Denies: Slurred speech present or seizure-like activity Psych: Denies: anxiety (Current symptoms) or memory loss Endo: Denies: flushing or hot flashes Dereck/Lymph: Denies: easy bruising or enlarged lymph nodes All/Imm: Denies: urticaria Meds/Allergies Home Medications and Allergies Home Medications Medication Instructions Recorded Confirmed Last Taken Type aspirin 81 mg tablet,delayed 81 mg PO DAILY 03/18/19 09/25/19 09/24/19 History release amlodipine 5 mg tablet 5 mg PO DAILY #90 tab 09/04/19 09/25/19 09/24/19 Rx famotidine 40 mg tablet 40 mg PO DAILY #90 tab 09/04/19 09/25/19 09/24/19 Rx pravastatin 20 mg tablet 20 mg PO DAILY #90 tab 09/04/19 09/25/19 09/24/19 Rx sertraline 50 mg tablet 50 mg PO DAILY #90 tab 09/04/19 09/25/19 09/25/19 Rx 25 MG telmisartan 80 mg tablet 80 mg PO DAILY #90 tab 09/04/19 09/25/19 09/25/19 Rx Vitamin D3 1 tab PO DAILY 09/25/19 09/25/19 Unknown History glucosamine sulfate [Glucosamine] 500 mg PO DAILY 09/25/19 09/25/19 Unknown History multivitamin [Multiple Vitamins] 1 tab PO DAILY 09/25/19 09/25/19 Unknown History mupirocin 1 applic TOPICAL BID PRN 09/25/19 09/25/19 Unknown History turmeric 400 mg PO DAILY 09/25/19 09/25/19 Unknown History Allergies Allergy/AdvReac Type Severity Reaction Status Date / Time No Known Allergies Allergy Verified 09/25/19 09:22 Current Medications Current Medications Generic Name Dose Route Start Last Admin Trade Name Freq PRN Reason Stop Dose Admin Amlodipine Besylate 5 mg 09/25/19 11:30 09/25/19 12:11 Norvasc PO 5 mg DAILY MALU Administration Sodium Chloride 1,000 mls @ 150 mls/hr 09/25/19 10:00 09/25/19 11:03 Sodium Chloride 0.9% IV 150 mls/hr .Q6H40M MALU Administration PFSH Acute PFSH: Medical History Acid reflux Anxiety Essential hypertension Mixed hyperlipidemia Surgical History History of bilateral tubal ligation age 36 History of hysterectomy for benign disease age 41 History of lithotripsy History of tonsillectomy age 19 Status post placement of ureteral stent Family History Sister Cancer breast Grandmother Myocardial infarct Grandfather Myocardial infarct Social History Smoking and tobacco status: former smoker Smoking risk assessment/counseling performed?: No Alcohol intake: never Desire information about alcohol rehabilitation?: No Counseling given: No Desire information about substance/drug rehabilitation?: No Counseling given: No Household members: spouse Marital status: Number of children: 3 History of recent travel: No Current gender identity: Female Vitals/I&O/Wt Last Vital Signs Temp 98.6 F 09/25/19 12:00 Pulse 107 H 09/25/19 12:51 Resp 24 H 09/25/19 12:10 BP 162/78 09/25/19 12:00 Pulse Ox 93 09/25/19 12:51 09/25/19 09/25/19 09/25/19 06:59 14:59 22:59 Intake Total 1050 / 1050 50 / 1100 Balance 1050 / 1050 50 / 1100 Weight last 48 hrs Weight 173 lb Physical Exam Const: COMMON NORMALS: no acute distress, alert and well nourished GENERAL APPEARANCE: well kempt and well developed ORIENTATION/CONSCIOUSNESS: not confused HENMT: COMMON NORMALS: normocephalic and atraumatic HEAD & SCALP: normocephalic and atraumatic Eye: COMMON NORMALS: conjunctivae normal and no scleral icterus CONJUNCTIVA: Yes conjunctivae normal Neck/C-Spine: COMMON NORMALS: full ROM GENERAL: Yes normal visual inspection Resp: COMMON NORMALS: normal respiratory effort EFFORT & INSPECTION: No labored and No Actively coughing GI: COMMON NORMALS: Normal to inspection, nondistended, normoactive bowel sounds present and Soft to palpation PALPATION: Yes Soft to palpation and Yes Tenderness to palpation present (GI) : COMMON NORMALS: Yes normal appearance of the vagina BLADDER/KIDNEY EXAM: Yes bladder normal to palpation and Yes CVA tenderness on the left EXTERNAL FEMALE EXAM: Yes normal appearance of the urethra and No lesion BIMANUAL EXAM - VAGINA & UTERUS: Yes bladder normal to palpation Back/Pelvis: GENERAL BACK: Yes CVA tenderness Extremity: COMMON NORMALS: no clubbing, cyanosis or edema Neuro: COMMON NORMALS: no focal motor deficits SENSORIUM/ORIENTATION: Yes alert Psych: COMMON NORMALS: mental status grossly normal and Normal thought process present APPEARANCE: Yes grossly normal and Yes well kempt ATTITUDE: Yes calm and Yes engaged THOUGHT PROCESS: Normal thought process present Skin: COMMON NORMALS: no rashes or lesions noted and no jaundice GENERAL SKIN EXAM: no rashes or lesions noted OTHER: Integra on her lower abdomen Data Micro: Micro: Microbiology 09/25/19 10:40 Blood Culture - Pr eliminary Blood SPECIMEN [facility] CATHIE 09/25/19 08:46 Blood Culture - Pr eliminary Blood SPECIMEN [facility] Imaging^: CT Abd/Pel: I personally reviewed and interpreted this imaging study as follows: My impression: Left of unclear etiology. Complicated by hyperdense material in the proximal ureter consistent with active recent bleeding. A&P Assessment and plan (1) Ureteral obstruction, left: Etiology unclear. Could be infectious sediment and bleeding causing the obstruction. I doubt a true ureteral stricture. Evidence of stone. Status: Acute (2) Pyelonephritis of left kidney: Evidence of UTI on urinalysis. Clinical symptoms suspicious for obstructive pyelonephritis. Recommend emergency stenting. Status: Acute Consult Attestations Medical Necessity Statement: Severe unremitting pain from obstruction. Could not be managed with oral medication and difficult to manage with parenteral medication. Based on infectious concerns she was considered an emergency admission for stent placement. 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
--- NOTE | 2019-09-25 15:55 | P.OP_ITS ---
Operative Report Date of procedure: September 25, 2019 Pre-op Diagnosis: Left ureteral obstruction with possible obstructive pyelonephritis Post-op diagnosis: same Implants: 7 Albanian by 26 cm double-pigtail stent, no string Pathology: none sent Surgeon: Racquel Anesthesia: General Estimated blood loss: No acute blood loss. Some bloody urine was drained though. Complications: None Findings: Guidewire easily bypassed the narrowed area. Immediate efflux of bloody urine from the ureter. Open-ended ureteral catheter used to inject a small amount of contrast showing no obvious S. 7 Albanian by 26 cm double-pigtail stent without string was passed without difficulty. Condition: stable Disposition: PACU Brief History: Patt is a very pleasant 68-year-old white female who I evaluated for the first time today at the request of the emergency department for severe left renal colicky symptoms, atypical findings on CT scan consistent with acute bleeding in the left proximal ureter, and obstruction of the mid ureter from unclear etiology. None was seen. Differential diagnosis includes stricture, infectious sediment, blood clot etc. Complicated by UTI and for that reason it was recommended that she undergo emergency left ureteral stent placement. Procedure: After emergent preoperative evaluation, examination, and obtaining of informed consent she was taken to the operating suite on 09/25/2019 where general anesthesia was administered without difficulty after appropriate timeout was performed, SCDs confirmed to be functioning, preoperative antibiotics administered, beta-jb protocol confirmed. Prepped and draped in usual sterile fashion in dorsolithotomy position pain careful attention to avoiding pressure points. 21 Albanian cystoscope with 30 degree lens was introduced into the urethral meatus and advanced into the bladder under videoscopy. The bladder was systematically examined and was essentially normal. The left ureteral orifice demonstrated bloody efflux. A flexible guidewire was then advanced up the left ureter easily bypassing the area of the narrowing seen on CT scan. A curled in the area of the renal pelvis. An open-ended ureteral catheter was advanced over the guidewire and the wire removed. There was immediate drainage of old blood with some sediment from the catheter. A small amount of contrast was injected to confirm location. No other obvious filling defect was noted other than what appeared to be blood clots. The guidewire was then replaced and the open-ended ureteral catheter removed and a 7 Albanian by 26 cm double-pigtail stent without string was advanced over the guidewire through the cystoscope into appropriate position as confirmed via fluoroscopy and cystoscopy. Bladder was drained and the procedure completed. She tolerated procedure well without complications and was awakened in the operating room and returned to the recovery room in stable condition. PLANS: 1. Maintain ureteral stent until relook later after recovered from infection.
[2019-09-25 16:49] LABS: Glucose Point of Care 145 mg/dL (70-110)
[2019-09-25] MEDS: acetaminophen 325 mg Tablet 650 MG PO ×2 (17:05→23:10)
[2019-09-25] MEDS: docusate sodium 100 mg Capsule PO (17:05)
--- NOTE | 2019-09-25 19:25 | PC.NURSE ---
amb to bathroom with 300 ml of light pink urine
[2019-09-25] MEDS: atorvastatin 40 mg Tablet 20 MG PO (20:51)
[2019-09-25] MEDS: trazodone 50 mg Tablet 25 MG PO ×2 (21:57→22:00)
--- NOTE | 2019-09-25 22:12 | PC.NURSE ---
300 dark yellow urine output with slight pink tinge
[2019-09-26] VITALS: BP 136/76; PULSE 94; RESP 18; TEMP 37.1; O2SAT 93
[2019-09-26 04:00] VITALS: BP 132/74; PULSE 91; RESP 17; TEMP 36.9; O2SAT 94
[2019-09-26 04:37] LABS: Basophils % 0.1 %; Hemoglobin 11.7 g/dL (11.5-15.3); Lymphocytes # 0.8 10^3/uL (0.8-4.8); Lymphocytes % 9.4 %; Mean Corpuscular HGB Conc 32.5 g/dL (30.0-36.0); Mean Corpuscular Hemoglobin 31.5 pg (28.0-34.0); Mean Platelet Volume 10.7 fL (7.4-10.4); Monocytes # 0.3 10^3/uL (0.2-0.9); Neutrophils # 6.99 10^3/uL (1.8-7.7); Neutrophils % 85.8 %; Nucleated Red Blood Cells % 0 %; Platelet Count 201 10^3/cmm (130-400); Red Blood Count 3.71 10^6/uL (4.1-5.3); Red Cell Distribution Width 11.9 % (12.1-15.1); White Blood Count 8.2 10^3/uL (4.0-10.0)
[2019-09-26 04:55] LABS: Anion Gap 12.9 (5-19); Blood Urea Nitrogen 10 mg/dL (8-23); Calcium 7.7 mg/dL (8.5-10.5); Carbon Dioxide 22 mmol/L (22-29); Chloride 109 mmol/L (98-107); Glomerular Filtration Rate 99.7 mL/min (90-130); Glucose 161 mg/dL (65-115); Osmolality Calculated 289 mOsm/kg (285-295); Potassium 3.9 mmol/L (3.5-5.1); Sodium 140 mmol/L (136-145)
--- NOTE | 2019-09-26 06:27 | PC.NURSE ---
Pt ambulating well in room, voided without difficulty reports pain much better. Output with 650 ml of light meche urine.
[2019-09-26] MEDS: sodium chloride 0.9% 1,000 ML 150 ML IV (06:36)
[2019-09-26] MEDS: acetaminophen 325 mg Tablet 650 MG PO (06:38)
[2019-09-26 07:04] VITALS: BP 145/73; PULSE 74; RESP 18; TEMP 37.2; O2SAT 94
--- NOTE | 2019-09-26 08:22 | P.PN_ITS ---
Subjective Subjective: Interval history: Urology follow-up: Postoperative day #1 left ureteral stent placement for obstruction with concern for obstructive pyelonephritis. She feels tremendously better after relief of the obstruction. No spiking temperatures, no hemodynamic instability etc. Urine is still pink but that is expected. Having some urgency and frequency related to the stent but no severe flank pain with voiding. I explained to her the expectations regarding recovery. Recommendations: 1. Maintain on antibiotics at discharge at least through mid week of the first week of October 2. I explained to her that I will be out of town for a week and that my nurse practitioner will be in the office on Sunday and I will still be accessible by phone if necessary. 3. We will plan hopefully for that first week in October 2 take her back to the operating room perform a cystoscopy flexible ureterorenoscopy for further assessment of the ureter and source of the initial bleeding. Hopefully this is just related to infectious etiology. She expressed good understanding. Medications: Reviewed: Yes Vitals/I&O/Wt Last Vital Signs Temp 99.0 F 09/26/19 07:04 Pulse 74 09/26/19 07:04 Resp 18 09/26/19 07:04 BP 145/73 09/26/19 07:04 Pulse Ox 94 09/26/19 07:04 09/25/19 09/26/19 09/26/19 22:59 06:59 14:59 Intake Total 1472.5 / 2522.5 1130 / 3652.5 Output Total 1950 / 1950 1450 / 3400 Balance -477.5 / 572.5 -320 / 252.5 Weight last 48 hrs Weight 175 lb Weight 173 lb Physical Exam Const: COMMON NORMALS: no acute distress, alert and well nourished GENERAL APPEARANCE: well kempt and well developed ORIENTATION/CONSCIOUSNESS: not confused Resp: COMMON NORMALS: normal respiratory effort EFFORT & INSPECTION: No labored and No Actively coughing Extremity: COMMON NORMALS: no clubbing, cyanosis or edema Neuro: SENSORIUM/ORIENTATION: Yes alert Psych: COMMON NORMALS: mental status grossly normal APPEARANCE: Yes grossly normal and Yes well kempt ATTITUDE: Yes calm and Yes engaged Data : 09/26/19 03:46 09/26/19 03:46 Micro: Microbiology 09/25/19 10:40 Blood Culture - Preliminary Blood SPECIMEN COLLECTED 09/25/19 08:46 Blood Culture - Preliminary Blood SPECIMEN COLLECTED A&P Assessment and plan (1) Ureteral obstruction, left: Status post emergency stenting. Feeling much better Etiology unclear. Status: Acute (2) Pyelonephritis of left kidney: Clinically looks good. White count is down. No fever spikes. I would maintain her on antibiotics at discharge and continue through my follow- up at least. Status: Acute Attestations Medical Necessity Statement*: See attending Coding Level of Care Code Acute Home Care Scheduler for Yesenia Chin Diagnoses Ureteral obstruction, left N13.5 Pyelonephritis of left kidney N12
[2019-09-26] MEDS: famotidine 20 mg Tablet 40 MG PO (09:39)
[2019-09-26 09:40] VITALS: BP 145/73
[2019-09-26] MEDS: losartan 50 mg Tablet 200 MG PO (09:40)
[2019-09-26] MEDS: sertraline 50 mg Tablet PO (09:40)
[2019-09-26] MEDS: cefTRIAXone 1,000 MG in sodium chloride 0.9% (plus) 50 ML 100 MG IV (09:43)
[2019-09-26] MEDS: docusate sodium 100 mg Capsule PO (09:48)
--- NOTE | 2019-09-26 09:56 | PM.DCS ---
Discharge Providers Date of Admission: 09/25/19 09:50 Date of Discharge: September 26, 2019 Attending Provider at Admission: Claudia Wells DO Attending Provider at Discharge: Claudia Wells DO Primary Care Provider: IVAN Milligan Diagnoses at Discharge Discharge Diagnosis (1) Ureteral obstruction, left: Status: Acute (2) Pyelonephritis of left kidney: Status: Acute Reason for Visit Reason for Visit: BLOOD IN PREMA, LOWER ABD PAIN Hospital Course Hospital Course: Patient was seen and evaluated in the emergency department noted to have left flank pain. She was also noted to have hematuria and pyelonephritis with concern for ureter stricture. Patient was given IV antibiotics and admitted for further evaluation and treatment. Dr. Clemetn, urologist was consulted. Patient was taken to the OR for stent placement. She did well in the postoperative setting with improvement of her flank pain. She was continued on IV antibiotics and on hospital day #2 patient was awake in bed and reported that she was feeling much better, no nausea or vomiting, no abdominal pain, occasional left-sided flank pain however much improved from admission. Discussed with urologist, Dr. Clement as well as with patient and discussed plan for close follow-up and discharged home with oral antibiotics. Patient verbalized understanding and agreed with plan, felt she was ready for discharge as she was feeling much better. On date of discharge patient denied any chest pain or shortness of breath, no abdominal pain or nausea Physical Exam Const: COMMON NORMALS: patient oriented x3 and alert GENERAL APPEARANCE: cooperative ORIENTATION/CONSCIOUSNESS: Yes awake, Yes oriented to person, Yes oriented to place and Yes oriented to time HENMT: COMMON NORMALS: normocephalic and atraumatic HEAD & SCALP: normocephalic and atraumatic Eye: COMMON NORMALS: Equal, round and reactive pupils present PUPIL: Yes Equal, round and reactive pupils present Neck/C-Spine: COMMON NORMALS: supple GENERAL: Yes normal visual inspection Resp: COMMON NORMALS: normal respiratory effort and clear to auscultation bilaterally EFFORT & INSPECTION: Yes able to speak in complete sentences AUSCULTATION: clear to auscultation bilaterally, no rhonchi and no wheezes Cardio: COMMON NORMALS: regular rate, regular rhythm and No murmurs present (Cardio) RATE: regular rate RHYTHM: regular rhythm GI: COMMON NORMALS: Soft to palpation and non-tender INSPECTION: No abdominal distension AUSCULTATION: Yes normoactive bowel sounds PALPATION: Yes Soft to palpation : COMMON NORMALS: Yes no CVA tenderness BLADDER/KIDNEY EXAM: Yes no CVA tenderness Back/Pelvis: COMMON NORMALS: no CVA tenderness Extremity: COMMON NORMALS: no clubbing, cyanosis or edema and no calf tenderness Neuro: COMMON NORMALS: patient oriented x3, CN's II-XII intact bilaterally, moves all extremities and no focal motor deficits SENSORIUM/ORIENTATION: Yes alert, Yes oriented to person, Yes oriented to place and Yes oriented to time SPEECH: speech normal Psych: COMMON NORMALS: mental status grossly normal and cooperative Skin: COMMON NORMALS: no rashes or lesions noted GENERAL SKIN EXAM: no rashes or lesions noted Discharge Data Data Completed and Pending: Completed Studies During Hospitalization Category Date Time Status CT kidney stone [id number] Urgent Cat Scan 09/25/19 08:31 Completed Pending at discharge Category Date Time Status Basic Metabolic P keke AM LABS Lab 09/27/19 04:00 Ordered Basic Metabolic P keke AM LABS Lab 09/28/19 04:00 Ordered Blood Culture Sta t Lab 09/25/19 10:40 Results Complete Blood Co unt w/Auto AM LABS Lab 09/27/19 04:00 Ordered Complete Blood Co unt w/Auto AM LABS Lab 09/28/19 04:00 Ordered Urine Culture Sta t Lab 09/25/19 08:49 Results Labs from last 24 hours 09/26/19 09/26/19 09/25/19 03:46 03:46 16:39 WBC 8.2 RBC 3.71 L Hgb 11.7 Hct 36.0 L MCV 97.0 MCH 31.5 MCHC 32.5 RDW 11.9 L Plt Count 201 MPV 10.7 H Neut % (Auto) 85.8 Lymph % (Auto) 9.4 [place] % (Auto) 4.0 Eos % (Auto) 0.0 Baso % (Auto) 0.1 Neut # (Auto) 6.99 Lymph # (Auto) 0.8 [place] # (Auto) 0.3 Eos # (Auto) 0.0 Baso # (Auto) 0.0 Nucleated RBC % (a uto) 0 Nucleated RBCs # 0.0 Sodium 140 Potassium 3.9 Chloride 109 H Carbon Dioxide 22 Anion Gap 12.9 BUN 10 Creatinine 0.6 GFR Calculation 99.7 Glucose 161 H POC Glucose 145 Calculated Osmolal ity 289 Lactic Acid Calcium 7.7 L 09/25/19 08:46 WBC RBC Hgb Hct MCV MCH MCHC RDW Plt Count MPV Neut % (Auto) Lymph % (Auto) [place] % (Auto) Eos % (Auto) Baso % (Auto) Neut # (Auto) Lymph # (Auto) [place] # (Auto) Eos # (Auto) Baso # (Auto) Nucleated RBC % (a uto) Nucleated RBCs # Sodium Potassium Chloride Carbon Dioxide Anion Gap BUN Creatinine GFR Calculation Glucose POC Glucose Calculated Osmolal ity Lactic Acid 0.2 L Calcium Vitals: Last Vital Signs Temp 99.0 F 09/26/19 07:04 Pulse 74 09/26/19 07:04 Resp 18 09/26/19 07:04 BP 145/73 09/26/19 09:40 Pulse Ox 94 09/26/19 07:04 Discharge Plan Discharge Patient Disposition: Home Condition: Stable Prescriptions: New Zofran 4 mg tablet 4 mg PO Q8H PRN (Reason: nausea and vomiting) 4 Days Qty: 12 RF: 0 Levaquin 750 mg tablet 750 mg PO DAILY 14 Days Qty: 14 RF: 0 Continued amlodipine 5 mg tablet 5 mg PO DAILY Qty: 90 RF: 1 famotidine [Pepcid] 40 mg tablet 40 mg PO DAILY Qty: 90 RF: 1 pravastatin 20 mg tablet 20 mg PO DAILY Qty: 90 RF: 1 sertraline 50 mg tablet 50 mg PO DAILY Qty: 90 RF: 1 telmisartan 80 mg tablet 80 mg PO DAILY Qty: 90 RF: 1 Multiple Vitamins Tablet 1 tab PO DAILY RF: 0 Glucosamine 500 mg Tablet 500 mg PO DAILY RF: 0 turmeric 400 mg Capsule 400 mg PO DAILY RF: 0 Vitamin D3 1 tab PO DAILY RF: 0 mupirocin 2 % ointment 1 applic TOPICAL BID PRN (Reason: UNKNOWN) RF: 0 Held aspirin [Aspir-81] 81 mg tablet,delayed release (DR/EC) 81 mg PO DAILY RF: 0 Hold Instructions: Resume on 10/03/19. Discharge Orders: Discharge Order (Routine); Ordered 09/26/19 Ordered By: Claudia Wells Referrals: Keya Olivier FNP-C [Primary Care Provider] - 4-7 days Kwaku Clement MD [Physician] - 10/06/19 (Postop check, preop visit. Tentative plan for flexible ureteroscopy on 10/09/2019.) Discharge Diet: Advance as tolerated Discharge Activity: Increase activity as tolerated Activity Restrictions/Additional Instructions: Urology: 1. As reviewed before discharge your stent may create urgency, frequency, blood in the urine, and left flank pain with urination at times. 2. I would like to see you back in the office on 10/06/2019 and make plans for relook after the infection has cleared in order to assess the initial obstructive cause. 3. It is important to remain on antibiotics until this process has been completed. 4. Please call my office if you have any concerns or questions. Michelle Suarez nurse practitioner will be available in my absence as we discussed. I do not anticipate any significant concerns that would require urologic intervention before I return. Discharge to home with Levaquin 750 mg daily for 14 days, this is an antibiotic. If you start experiencing any loose or watery stools please notify your provider. You may take probiotic twice a day or eat yogurt with active cultures if you develop any loose stools. Discharge to home with Zofran, ondansetron, this is a medication to take as needed for nausea. Follow-up with your primary care provider in 5 to 7 days Follow-up with Dr. Clement as recommended Call your physician or present to the ED for any acute illness or concern. For any worsening flank pain, increasing fever, worsening nausea unable to hold down medications please present to the ED Discharge Attestations Time Spent in Discharge Care*: greater than 30 min Specific Discharge Activities: Specific discharge activities: educating patient, discussing with pcp/other providers and documenting/other paperwork Quality Metrics Clinical Quality Measures During this hospital stay, did patient experience: None Coding Level of Care Code Acute Retail And Restaurant Associate for Chg Fwd Diagnoses Ureteral obstruction, left N13.5 Pyelonephritis of left kidney N12
--- NOTE | 2019-09-26 09:57 | PC.CHAP ---
Pastoral Care Encounter/Spiritual Assessment Type of Contact [] Declined circulating process inspector visit [] Patient/Family/Request visit [] Outpatient visit [] Follow-up visit [] Physician referral [] Code/Alert [x] Routine visit [] Staff referral [] Actively dying [] Patient sleeping [] Family support [] [] Out of room [] Palliative care [] [] Receiving care in room [] Pre-surgical visit [] Trauma [] Long length of stay [] ICU visit [] Other: Relational/Emotional Strength [] Patient feels connected with others/family/visitors/staff [] Distress [] Loneliness/isolation [] Abandonment Spirituality of Patient [] Person of Lula [] Attends Taoist of their Lula [] Believes in Prayer [] Reads Bible or Rastafari materials [] There are Spiritual issues to be addressed Trade Clerk Interventions [x] Prayer [x] Active listening [x] Non-anxious presence [x] Spiritual/emotional support [] Crisis/trauma care [] Spiritual counseling [] Bereavement support [] Provided bereavement packet [] Provided Bible/devotional materials [] Provided toy/stuffed animal, coloring book to patient or family member [] Provided Communion [] Anointing/[place] [] Salvation [x] Completed spiritual assessment [] Other: Impact on Illness or Injury [] Angry [] Fearful [] Anxious [] Often cries [] Exhaustion [] Unable to work [] Unable to attend alevism [] Unable to walk/stand [] Unable to read [] Unable to drive [] Unable to eat/drink [] Unable to sleep [] Unable to be with family [] Patient intubated [] Other: Summary Patient feeling stronger Time spent with patient 5 min
[2019-09-26 11:44] VITALS: BP 150/73; PULSE 68; RESP 18; TEMP 37.1; O2SAT 95
[2019-09-26 12:45] VITALS: BP 150/73; PULSE 68; RESP 18; TEMP 37.1; O2SAT 95
--- NOTE | 2019-09-26 14:56 | PC.NURSE ---
DC instructions given,patient voiced full understanding .iv d/c'd cath intact. bleeding controlled with 2x2's and coban
== END 2019-09-26 13:35 | disposition home or self-care (01) | DRG 660 ==
LOC: ER 09:58 → MEDSURG 13:42
PROVIDERS: Physician Assistant; Urology; Admitting Provider Family Medicine; PCP Nurse Practitioner; Visit Provider Family Medicine
PROC: 0TJB8ZZ Inspection of Bladder, Via Natural or Artificial Opening Endoscopic (ICD-10-PCS; CPT 52000; principal; 2019-09-25 13:15)
PROC: 0T778DZ Dilation of Left Ureter with Intraluminal Device, Via Natural or Artificial Opening Endoscopic (ICD-10-PCS; CPT 50605; 2019-09-25 13:15)
PROC: 0TJ98ZZ Inspection of Ureter, Via Natural or Artificial Opening Endoscopic (ICD-10-PCS; CPT 52351; 2019-09-25 13:15)
PROC: 0T778DZ Dilation of Left Ureter with Intraluminal Device, Via Natural or Artificial Opening Endoscopic (ICD-10-PCS; CPT 74420; 2019-09-25 13:15)
DX: N20.1 Calculus of ureter (principal); N30.01 Acute cystitis with hematuria; N10 Acute pyelonephritis; N13.1 Hydronephrosis with ureteral stricture, not elsewhere classified; Z79.82 Long term (current) use of aspirin; K21.9 Gastro-esophageal reflux disease without esophagitis; I10 Essential (primary) hypertension; F41.9 Anxiety disorder, unspecified; E78.2 Mixed hyperlipidemia; Z87.891 Personal history of nicotine dependence
CPT/HCPCS: 12345; 36415; 36416; 74018; 74176; 76000; 80048; 80053; 81000; 81001; 81003; 82962; 83605; 85025; 87040; 87086; 96375; 99283; C2625; J0696; J1100; J2250; J2270; J2405; J2704; J2710; J3010; J3490; J7030

== ENCOUNTER → 2019-10-09 10:43 | Outpatient (BNVA) | payer MEDICARE, OTHER, SELFPAY | PROVIDERS: PCP Nurse Practitioner; Visit Provider Urology | DX: N12 Tubulo-interstitial nephritis, not specified as acute or chronic (principal); N13.5 Crossing vessel and stricture of ureter without hydronephrosis | CPT/HCPCS: 81001 ==

== ENCOUNTER 2019-10-13 11:28 | Day surgery (SDC) | payer MEDICARE, OTHER, SELFPAY ==
[2019-10-10 12:01] VITALS: BMI 27.8
[2019-10-13] VITALS (7 sets, daily range): BP systolic 119–149; BP diastolic 66–99; PULSE 62–77; RESP 16–18; TEMP 36.4–37.2; O2SAT 94–100
--- NOTE | 2019-10-13 | SCC_ITS ---
Procedure Done: 1. Cystoscopy with bilateral retrograde ureteral pyelograms 2. Removal of left ureteral stent 3. Left ureteral renoscopy 66.6 seconds of fluoroscopic guidance, for a cumulative dose of 16.97 mGy, was provided to Dr. Clement by the radiology department. C-arm images of the abdomen were saved for the patient's permanent record. [facility]
--- NOTE | 2019-10-13 11:30 | SC_ITS ---
WS: [id number] INTRAOPERATIVE TECHNIQUE: 19 Spot fluoroscopic images for intraoperative purposes. FLUOROSCOPY TIME: 66.6 seconds CLINICAL INFORMATION: Left ureteroscopy COMPARISON: None. FINDINGS: Fluoroscopy used for intraoperative purposes. Bilateral ureteroscopy. Deployed left double-J ureteral stent. SC/C-arm FL for Urology IMPRESSION: Images obtained for intraoperative purposes.
[2019-10-13] MEDS: sodium chloride 0.9% 1,000 ML 30 ML IV (11:58)
--- NOTE | 2019-10-13 12:25 | ANES.PREANE2 ---
Pre-Anesthetic Assessment Pre-Anesthetic Assessment: Height/Weight: Height 1.65 m Weight 75.75 kg Temp Pulse Resp BP Pulse Ox 98.2 F 77 18 149/99 99 10/13/19 11:42 10/13/19 11:42 10/13/19 11:42 10/13/19 11:42 10/13/19 11:42 Preop Diagnosis: Left ureteral obstruction Proposed Procedure: Operation Date: 10/13/19 12:45 Proposed Procedures p Cystoscopy [id number] N13.5(Not Applicable) - Kwaku Clement MD s Retrograde Pyelogram(Left) - Kwaku Clement MD s Ureteroscopy(Not Applicable) - Kwaku Clement MD s Ureteral Stent Placement(Not Applicable) - Kwaku Clement MD Familial anesthetic complications: Left jaw poppped during last procedure, causing soreness for a couple of days Was Beta Dale taken within 24 hours: N/A Last intake: Intake black tea at 070-0 Last Liquid Date 10/12/19 Last Liquid Time 19:00 Last Solid Date 10/12/19 Last Solid Time 19:00 Social: Social History: Alcohol and No tobacco Comment: 3-4 beers a day Exam: Pre-Anes Outpt Exam: alert, oriented x 3, clear to auscultation bilaterally and regular rate & rhythm Airway: Cervical ROM: WNL MP: 3 Dentition: Full CV/HEM: CV/HEM: HTN GI: GI: GERD Musc/skel: Musc/skel: Lower Back Pain Neuropsych: Neuropsych: None reported Anesthetic Plan: ASA status: 2 Anesthesia: General Risk of > 500 ml blood loss (7ml/kg in children): No Meds/Allergies Current Medications: Current Medications Generic Name Dose Route Start Last Admin Trade Name Freq PRN Reason Stop Dose Admin Sodium Chloride 1,000 mls @ 30 ml s/hr 10/13/19 07:30 10/13/19 11:58 Sodium Chloride 0.9% IV 10/14/19 07:29 30 mls/hr .Q24H MALU Administration PFSH Anesthesia PFSH: Medical History Acid reflux Anxiety Essential hypertension Mixed hyperlipidemia Surgical History History of bilateral tubal ligation age 36 History of hysterectomy for benign disease age 41 History of lithotripsy History of tonsillectomy age 19 Status post placement of ureteral stent Family History Sister Cancer breast Grandmother Myocardial infarct Grandfather Myocardial infarct Mother , at age 67 Complications, , surgical Father , at age 87 Hypertension Hyperlipidemia Social History Smoking and tobacco status: former smoker Second hand smoke exposure: No Smoking risk assessment/counseling performed?: No Alcohol intake: never Desire information about alcohol rehabilitation?: No Counseling given: No Desire information about substance/drug rehabilitation?: No Counseling given: No Adopted: No Caregiver/support person: No Lives independently: Yes Household members: spouse Housing: House Marital status: Number of children: 3 service: No Current occupational status: retired History of recent travel: No Current gender identity: Female Data Anesthesia Cardiac Studies: No Data to Display
[2019-10-13] MEDS: levofloxacin-dextrose 5 % 500 MG/100 ML PREMIX 100 MG IV (13:08)
--- NOTE | 2019-10-13 13:09 | W.PM.OPSUD ---
Surgery/Procedure H&P Update DATE OF PROCEDURE: October 13, 2019 DATE H&P PERFORMED: 10/09/19 H&P UPDATE INFORMATION: I have reviewed H&P completed within last 30 days, I have examined patient prior to procedure, No changes to prior documentation and H&P is in [facility] [place] on date indicated CHANGES TO PREVIOUS DOCUMENTATION: Reviewed the details and expectations again in detail. No change in plan except possibly a RIGHT RETROGRADE pyelogram because she has had some right-sided pain. PREOP DIAGNOSIS: Left ureteral obstruction PLANNED PROCEDURE: Operation Date: 10/13/19 12:45 Proposed Procedures p Cystoscopy [id number] N13.5(Not Applicable) - Kwaku Clement MD s Retrograde Pyelogram(Left) - Kwaku Clement MD s Ureteroscopy(Not Applicable) - MD claudio Mata Ureteral Stent Placement(Not Applicable) - Kwaku Clement MD
--- NOTE | 2019-10-13 13:53 | P.OP_ITS ---
Operative Report Date of procedure: October 13, 2019 Pre-op Diagnosis: Left ureteral obstruction Pre-op Diagnosis: Intermittent right flank pain Post-op Diagnosis: 1. Completely resolved left ureteral obstruction with no residual inflammatory changes, stones masses. NORMAL right retrograde ureteral Procedure Done: 1. Cystoscopy with bilateral retrograde ureteral pyelograms 2. Removal of left ureteral stent 3. Left ureterorenoscopy Specimens removed/disposition: Left ureteral stent. Disposed of Pathology: none sent Surgeon: Racquel Anesthesia: General Estimated blood loss: None Urine output: Not measured Complications: None Findings: No evidence of right ureteral obstruction filling defect etc. Normal course and caliber of the right ureter Left collecting system and ureter completely normal on inspection view ret rograde pyelogram and ureteroscopic evaluation of ureter renal pelvis and calyces Condition: stable Disposition: PACU Brief History: Patt is a very pleasant 69-year-old white female who was recently hospitalized for obstructive pyelonephritis with acute obstruction noted on CT scan of the left ureter without clear etiology identified. There was a calcification in that area but it was not clearly in the course of the ureter. She underwent emergency stenting at that time has been continued on antibiotics and is back now for reinspection of the ureter. Differential diagnosis included stricture, infectious sludge leading to obstruction, neoplastic process, stone. Procedure: After routine preoperative evaluation examination and obtaining of informed consent she was taken to the operating suite on 10/13/2019 where general anesthesia was administered without difficulty after appropriate timeout was performed, SCDs confirmed to be functioning, preoperative antibiotics administered, beta-jb protocol confirmed. Prepped and draped in the usual sterile fashion in dorsolithotomy position pain careful attention to avoiding pressure points. 21 [place] [employer] cystoscope with 30 degree lens was introduced into the urethral meatus and advanced into the bladder under videoscopy. She was seen to have a small right ureterocele with a very narrowed ureteral orifice but it appeared to be completely baseline for her with no inflammation. The orifice was too small for a cone-tip catheter and for that reason a flexible tip guidewire was advanced in the distal aspect of the ureter and open ended ureteral catheter was advanced over the guidewire into the distal ureter and a right retrograde ureteropyelogram was performed showing normal course and caliber of the ureter, no dilation or filling defects in the pyelocalyceal system. There was a crossing vessel of the upper pole infundibulum which was a variant of normal and no reason to be concerned. Flexible grasping forceps were then utilized to secure the end of the left ureteral stent which was withdrawn through the urethral meatus and a flexible tip guidewire was easily advanced up the stent into the pyelocalyceal system on the left. The wire was secured to the drapes as an SAFETY wire. A 7 [place] [employer] offset semirigid ureteroscope was then easily advanced up the left ureter next to the wire. The scope was easily passed all the way into the renal pelvis. The ureter was carefully inspected on passage and then withdrawal of the scope. The previously identified inflamed area where the obstruction low level was seen on CT scan at approximately L5 was completely normal. There is no filling defect stones inflammatory changes masses etc. Certainly no strictures. Because of the possibility of a stone that been pushed in a proximal fashion at the time of stent placement it was decided to perform a flexible renoscopy. The flexible ureteroscope was then advanced over the safety wire and the wire was removed. Contrast was injected below the renal pelvis filling all the calyces and then the flexible ureteroscope was passed into each of the calyces sequentially and with age passage findings were considered normal. There was no stones no inflammation nothing. The ureter was inspected as the scope was removed and again normalcy was confirmed. The bladder was drained after confirming efflux of urine from the right ureteral orifice as well She tolerated the procedure well without complications and was awakened in the operating room and returned to the recovery in stable condition. PLANS: 1. I will plan no specific follow-up unless she has any concerns or questions. 2. She needs to complete the Levaquin course
[2019-10-13] MEDS: iohexol 300 mg/mL 50 mL Btl (OR ONLY) XX (13:55)
--- NOTE | 2019-10-13 14:08 | SUR.PHASEI ---
PT AWAKE ALERT ORIENTED, VSS PT WITH GOOD RESP NOTED NO DRESSING PT ON RA TRIAL TAKING OCC ICE CHIPS
[2019-10-13] MEDS: phenazopyridine 100 mg Tablet 200 MG PO (14:35)
== END 2019-10-13 15:20 | disposition home or self-care (01) ==
PROVIDERS: PCP Nurse Practitioner; Visit Provider Urology
PROC: 0TJB8ZZ Inspection of Bladder, Via Natural or Artificial Opening Endoscopic (ICD-10-PCS; CPT 52000; principal; 2019-10-13 12:45)
PROC: (CPT 74420; 2019-10-13 12:45)
PROC: 0TJ98ZZ Inspection of Ureter, Via Natural or Artificial Opening Endoscopic (ICD-10-PCS; CPT 52351; 2019-10-13 12:45)
PROC: (CPT 52310; 2019-10-13 12:45)
DX: N20.1 Calculus of ureter (principal); I10 Essential (primary) hypertension; K21.9 Gastro-esophageal reflux disease without esophagitis; E78.2 Mixed hyperlipidemia; Z87.891 Personal history of nicotine dependence; Z79.82 Long term (current) use of aspirin; F41.9 Anxiety disorder, unspecified
CPT/HCPCS: 52310; 12345; 76000; J1100; J1956; J2405; J2704; J2710; J3010; J3490; J7030

== ENCOUNTER → 2020-02-20 08:59 | Outpatient (BNVA) | payer MEDICARE, OTHER, SELFPAY | PROVIDERS: PCP Nurse Practitioner; Visit Provider Nurse Practitioner | DX: E78.2 Mixed hyperlipidemia (principal); I10 Essential (primary) hypertension; F41.9 Anxiety disorder, unspecified; R31.9 Hematuria, unspecified | CPT/HCPCS: 80053; 80061; 81000; 84443; 85025 ==

== ENCOUNTER 2020-02-21 10:50 | Emergency (ER) | payer MEDICARE, OTHER, SELFPAY ==
[2020-02-21 11:17] VITALS: BP 167/96; PULSE 103; RESP 16; TEMP 36.4; O2SAT 98; BMI 28.3
[2020-02-21 11:21] VITALS: BP 160/80; PULSE 103; RESP 18; O2SAT 96
--- NOTE | 2020-02-21 11:30 | CTR_ITS ---
PROCEDURE INFORMATION: Exam: CT Abdomen And Pelvis Without Contrast Exam date and time: 02/21/2020 12:00 PM Age: 69 years old Clinical indication: Other: Hematuria; Prior surgery; Surgery type: Hyster TECHNIQUE: Imaging protocol: Computed tomography of the abdomen and pelvis without contrast. Radiation optimization: All CT scans at this facility use at least one of these dose optimization techniques: automated exposure control; mA and/or kV adjustment per patient size (includes targeted exams where dose is matched to clinical indication); or iterative reconstruction. COMPARISON: CT kidney stone [id number] 09/25/2019 8:46 AM RADIATION DOSE METRICS: Total DLP (mGy-cm): 1492.23 FINDINGS: Liver: Multiple small benign cysts are present in the liver. Gallbladder and bile ducts: Multiple small stones are present in the gallbladder. Bile ducts are normal. Pancreas: Normal. No ductal dilation. Spleen: Normal. No splenomegaly. Adrenal glands: Multiple small low-density nodules are present in the adrenal glands consistent with multiple benign adenomas. Kidneys and ureters: There is bilateral nonobstructing nephrolithiasis. Chronic perinephric stranding is present. Is no hydronephrosis or hydroureter. Stomach and bowel: There is prominent sigmoid diverticulosis but there is no evidence of acute diverticulitis. There is no bowel dilatation or evidence of obstruction. Appendix: No evidence of appendicitis. Intraperitoneal space: Unremarkable. No free air. No significant fluid collection. Vasculature: There is calcification of the aorta and iliac arteries but there is no aneurysm. Lymph nodes: Unremarkable. No enlarged lymph nodes. Urinary bladder: Unremarkable as visualized. Reproductive: Hysterectomy, otherwise unremarkable as visualized. Bones/joints: Chronic degenerative changes are present in the lumbar spine with joint space narrowing, sclerosis and osteophyte formation. There is grade 1 spondylolisthesis at L4-L5 due to facet joint degeneration. Soft tissues: There is a small fat containing umbilical hernia. CT/CT kidney stone [id number] IMPRESSION: 1. Prominent sigmoid diverticulosis but no evidence of acute diverticulitis. 2. Bilateral nonobstructing nephrolithiasis. 3. Cholelithiasis. 4. Small hiatal hernia. 5. Bilateral small benign adrenal adenomas. Radiation Dose CTDIVOL = (mGy): DLP = 1492.23 (mGy-cm)
--- NOTE | 2020-02-21 11:32 | W.ED.FEMALGU ---
HPI - Female Genitourinary General: Chief complaint: Urogenital-Female Stated complaint: BLOOD IN URINE Time Seen by Provider: 02/21/20 11:20 Source: patient and family () Mode of arrival: ambulatory Limitations: no limitations History of Present Illness: HPI Narrative: Patient is a 69-year-old female who presents to the emergency department with hematuria. She noticed bright red blood in her urine yesterday and today. About 6 months ago she had something similar and at that time she eventually developed flank pain and was diagnosed with pyelonephritis and a urethral stricture. She required emergency stent placement at the time. The patient does not want to wait till he gets to the point and so she came in to be evaluated today. She denies any fever, nausea or vomiting. Pertinent past history: pyelonephritis Onset (ago): day(s) (1) Associated symptoms: Deny abdominal pain, short of breath, fevers/chills, headache(s), nausea, rash, seizures, syncope, vaginal bleeding, vaginal discharge or weakness Treatment prior to arrival: none Patient : No Review of Systems General: Reports: 10 or more systems reviewed and unremarkable except in HPI and below Const: Denies: fever(s), chills or body aches Eyes: Denies: change in vision or blurry vision ENMT: Denies: throat pain, enlarged tonsils, odynophagia, hoarseness, mouth pain or swelling of lips/tongue Card: Denies: syncope Resp: Denies: dyspnea, productive cough or non-productive cough GI: Denies: abdominal pain or nausea : Denies: vaginal discharge Musc: Denies: neck pain, back pain or extremity swelling Skin/Breast: Denies: rash, pruritus or erythema Neuro: Denies: headache(s) Endo: Denies: polyuria, polydipsia or tired all the time PFS ED PFSH: Medical History (Updated 02/21/20 @ 12:44 by Rach Mcknight MD, [facility]) Acid reflux Anxiety Essential hypertension Mixed hyperlipidemia Surgical History (Reviewed 02/21/20 @ 11:35 by Rach Mcknight MD, [facility] [place]) History of bilateral tubal ligation age 36 History of hysterectomy for benign disease age 41 History of lithotripsy History of tonsillectomy age 19 Status post placement of ureteral stent Family History (Reviewed 02/21/20 @ 11:35 by Rach Mcknight MD, [facility] [place]) Sister Cancer breast Grandmother Myocardial infarct Grandfather Myocardial infarct Mother , at age 67 Complications, , surgical Father , at age 87 Hypertension Hyperlipidemia Social History (Reviewed 02/21/20 @ 11:35 by Rach Mcknight MD, [facility] [place]) Smoking and tobacco status: former smoker Second hand smoke exposure: No Smoking risk assessment/counseling performed?: No Alcohol intake: never Desire information about alcohol rehabilitation?: No Counseling given: No Desire information about substance/drug rehabilitation?: No Counseling given: No Adopted: No Caregiver/support person: No Lives independently: Yes Household members: spouse Housing: House Marital status: Number of children: 3 service: No Current occupational status: retired History of recent travel: No Current gender identity: Female Physical Exam Const: COMMON NORMALS: no acute distress, average body habitus, patient oriented x3, no limitations, healthy appearing, alert and well nourished Neck/C-Spine: COMMON NORMALS: no meningeal signs and no JVD Resp: COMMON NORMALS: normal respiratory effort, No retractions, No use of accessory muscles, clear to auscultation bilaterally and percussion normal AUSCULTATION: clear to auscultation bilaterally PERCUSSION: percussion normal Cardio: COMMON NORMALS: no JVD, regular rate, regular rhythm, S1 normal heart sound present, S2 normal heart sound present, No gallops present (Cardio), No clicks present (Cardio), No murmurs present (Cardio), No rub (Cardio) and Peripheral pulses 2+ throughout RATE: regular rate RHYTHM: regular rhythm HEART SOUNDS: S1 normal heart sound present and S2 normal heart sound present PERIPHERAL PULSES: Peripheral pulses 2+ throughout GI: COMMON NORMALS: Normal to inspection, nondistended, normoactive bowel sounds present, Soft to palpation, non-tender, No hepatosplenomegaly present, no masses and no bruits PALPATION: Yes Soft to palpation and Yes No hepatosplenomegaly present : COMMON NORMALS: Yes no CVA tenderness BLADDER/KIDNEY EXAM: Yes no CVA tenderness SPECULUM EXAM - VAGINA: No vaginal bleeding OB/EXTERNAL & SPECULUM: No vaginal bleeding Back/Pelvis: COMMON NORMALS: no CVA tenderness Extremity: COMMON NORMALS: normal to inspection, full ROM, capillary refill normal, no calf tenderness and no pedal edema Neuro: COMMON NORMALS: patient oriented x3 SENSORIUM/ORIENTATION: Yes alert MENINGEAL SIGNS: Yes no meningeal signs Skin: COMMON NORMALS: no rashes or lesions noted, no wounds, turgor normal, no jaundice, no petechiae and no mottling GENERAL SKIN EXAM: no rashes or lesions noted and turgor normal Course Reevaluation(s): Reevaluation #1: Discussed her lab and imaging findings with her. She has bilateral nephrolithiasis but nonobstructing, she also has a UTI. No pyelo at this time we will treat her for her UTI. We will give her a dose of intravenous ceftriaxone here in the emergency department and discharge her home with oral medication. She voiced understanding and is in agreement with the plan. Time: 12:41 Vital Signs: Vital signs: Vital Signs Temperature 97.8 F 02/21/20 13:35 Pulse Rate 18 L 02/21/20 13:35 Respiratory Rate 18 02/21/20 13:35 Blood Pressure 129/74 02/21/20 13:35 Pulse Oximetry 95 02/21/20 13:35 MDM - Female MDM Narrative: Medical decision making narrative: 69 year old female with a history of pyelonephritis about 6 months ago presents to the ED with hematuria. Evaluation in the ED was consistent with a UTI. She also has bilateral nephrolithiasis that are non obstructive. She was given a dose of IV ceftriaxone and discharged home with a prescription for augmentin. She is to f/u with her PCP and urologist. Medical Records: Attestation: I reviewed the patient's medical records. Lab Data: Attestation: I reviewed the patient's lab results. Labs: Lab Results 02/21/20 02/21/20 02/21/20 Range/Units 11:43 11:43 11:43 WBC 7.7 (4.0-10.0) 10^3/ uL RBC 4.74 (4.1-5.3) 10^6/u L Hgb 14.9 (11.5-15.3) g/dL Hct 44.4 (37.0-47.0) % MCV 93.7 (81-99) fL MCH 31.4 (28.0-34.0) pg MCHC 33.6 (30.0-36.0) g/dL RDW 11.4 L (12.1-15.1) % Plt Count 262 (130-400) 10^3/c mm MPV 9.6 (7.4-10.4) fL Neut % (Auto) 64.9 % Lymph % (Auto) 23.8 % Hartley % (Auto) 7.1 % Eos % (Auto) 2.9 % Baso % (Auto) 0.5 % Neut # (Auto) 4.97 (1.8-7.7) 10^3/u L Lymph # (Auto) 1.8 (0.8-4.8) 10^3/u L Hartley # (Auto) 0.5 (0.2-0.9) 10^3/u L Eos # (Auto) 0.2 (0.0-0.8) 10^3/u L Baso # (Auto) 0.0 (0.0-0.1) 10^3/u L Nucleated RBC % (a uto) 0 % Nucleated RBCs # 0.0 /100WBC Sodium 139 (136-145) mmol/L Potassium 3.8 (3.5-5.1) mmol/L Chloride 104 (98-107) mmol/L Carbon Dioxide 22 (22-29) mmol/L Anion Gap 16.8 (5-19) BUN 9 (8-23) mg/dL Creatinine 0.5 (0.5-0.9) mg/dL GFR Calculation 122.7 (90-130) mL/min Glucose 106 (65-115) mg/dL Calculated Osmolal ity 287 (285-295) mOsm/k g Calcium 9.5 (8.5-10.5) mg/dL Total Bilirubin 1.1 (0.15-1.2) mg/dL AST 19 (0-32) U/L ALT 20 (0-33) U/L Alkaline Phosphata se 92 (35-105) IU/L Total Protein 7.2 (6.6-8.7) g/dL Albumin 4.6 (3.5-5.2) g/dL Globulin 2.6 (1.3-4.6) g/dL Urine Color Yellow (Yellow) Urine Appearance Sl hazy (CLEAR) Urine pH 5 (5-7) Ur Specific Gravit y 1.010 (1.005-1.030) Urine Protein Neg (Negative) Urine Glucose (UA) Norm (Normal) Urine Ketones Negative (Negative) Urine Blood Neg (Negative) Urine Nitrate Negative (Negative) Urine Bilirubin Neg (Negative) Urine Urobilinogen Norm (Negative) mg/dL Ur Leukocyte Jolly ase 2+ H (Negative) Urine RBC None (0-2) /hpf Urine WBC 15-25 H (0-5) /hpf Ur Squamous Epith Cells 0-4 H (0-5) /hpf Amorphous Sediment Not Reportable Urine Bacteria 1+ H (NONE) /hpf Imaging Data: CT Abd/Pel: Radiologist's impression: [address] [address] [address] Scan Report Signed Patient: Patt Baptiste #: [id number] : [facility][id number] Age/Sex: 69 / FADM Date: 02/21/20 Loc: ERRoom/Bed: Attending Dr: Ordering Provider/Ordering MD: Rach Mcknight MD, [facility] Date of Service: 02/21/20 Procedure(s): CT kidney stone [id number] Accession Number(s): [id number] Report Number: [id number] PROCEDURE INFORMATION: Exam: CT Abdomen And Pelvis Without Contrast Exam date and time: 02/21/2020 12:00 PM Age: 69 years old Clinical indication: Other: Hematuria; Prior surgery; Surgery type: Hyster TECHNIQUE: Imaging protocol: Computed tomography of the abdomen and pelvis without contrast. Radiation optimization: All CT scans at this facility use at least one of these dose optimization techniques: automated exposure control; mA and/or kV adjustment per patient size (includes targeted exams where dose is matched to clinical indication); or iterative reconstruction. COMPARISON: CT kidney stone [id number] 09/25/2019 8:46 AM RADIATION DOSE METRICS: Total DLP (mGy-cm): 1492.23 FINDINGS: Liver: Multiple small benign cysts are present in the liver. Gallbladder and bile ducts: Multiple small stones are present in the gallbladder. Bile ducts are normal. Pancreas: Normal. No ductal dilation. Spleen: Normal. No splenomegaly. Adrenal glands: Multiple small low-density nodules are present in the adrenal glands consistent with multiple benign adenomas. Kidneys and ureters: There is bilateral nonobstructing nephrolithiasis. Chronic perinephric stranding is present. Is no hydronephrosis or hydroureter. Stomach and bowel: There is prominent sigmoid diverticulosis but there is no evidence of acute diverticulitis. There is no bowel dilatation or evidence of obstruction. Appendix: No evidence of appendicitis. Intraperitoneal space: Unremarkable. No free air. No significant fluid collection. Vasculature: There is calcification of the aorta and iliac arteries but there is no aneurysm. Lymph nodes: Unremarkable. No enlarged lymph nodes. Urinary bladder: Unremarkable as visualized. Reproductive: Hysterectomy, otherwise unremarkable as visualized. Bones/joints: Chronic degenerative changes are present in the lumbar spine with joint space narrowing, sclerosis and osteophyte formation. There is grade 1 spondylolisthesis at L4-L5 due to facet joint degeneration. Soft tissues: There is a small fat containing umbilical hernia. CT/CT kidney stone [id number] IMPRESSION: 1. Prominent sigmoid diverticulosis but no evidence of acute diverticulitis. 2. Bilateral nonobstructing nephrolithiasis. 3. Cholelithiasis. 4. Small hiatal hernia. 5. Bilateral small benign adrenal adenomas. Radiation Dose CTDIVOL = (mGy): DLP = 1492.23 (mGy-cm) Dictated By:Kunal Benavides Signed By:Kimberly Benavides Date/Time:02/21/201230 DD/ 123 Discharge Plan Discharge Patient Disposition: Home Clinical Impression: Bilateral nephrolithiasis Urinary tract infection Qualifiers: Urinary tract infection type: acute cystitis Hematuria presence: with hematuria Qualified Code(s): N30.01 - Acute cystitis with hematuria Condition: Stable Prescriptions: New Augmentin 500-125 mg tablet 1 tab PO BID Qty: 10 RF: 0 Continued up4 Probiotics Adult 50 Plus 25 billion cell capsule 1 cap PO DAILY@0800 RF: 0 multivitamin [Multiple Vitamins] Tablet 1 tab PO DAILY@1999 RF: 0 glucosamine sulfate [Glucosamine] 500 mg Tablet 500 mg PO DAILY@1999 RF: 0 turmeric 400 mg Capsule 400 mg PO DAILY@0800 RF: 0 Vitamin D3 1 tab PO DAILY@1999 RF: 0 mupirocin 2 % ointment 1 applic TOPICAL BID PRN (Reason: UNKNOWN) RF: 0 sertraline 50 mg tablet 25 mg PO DAILY@0800 RF: 0 No Action Aspir-81 81 mg Tablet,Delayed Release (Dr/Ec) 81 mg PO DAILY@1999 RF: 0 Pepcid 40 mg tablet 40 mg PO DAILY@00 RF: 0 amlodipine 5 mg tablet 5 mg PO DAILY@1999 RF: 0 telmisartan 80 mg tablet 80 mg PO DAILY@0800 RF: 0 pravastatin 20 mg tablet 20 mg PO DAILY@1999 RF: 0 Discharge Orders: Discharge ED (Routine); Ordered 02/21/20 Ordered By: Rach Mcknight Referrals: Keya Olivier FNP-C [Primary Care Provider] - 1-3 days Kwaku Clement MD [Physician] - 7-10 days Discharge Diet: Usual diet Discharge Activity: Resume usual activity Patient Instructions: Kidney Stones (ED), Urinary Tract Infection in Women (ED) Activity Restrictions/Additional Instructions: Return for any new or worsening symptoms. Follow-up with your primary care provider within [address] Clement's office to schedule an appointment with him as soon as possible for evaluation of the kidney stones. Take the antibiotic as prescribed, but start it tomorrow. Coding Level of Care Code ED Counselor Supervisor for Chg Fwd Exam Comprehensive
[2020-02-21 11:48] VITALS: BP 160/80; PULSE 98; RESP 18; O2SAT 95
[2020-02-21 11:53] LABS: Basophils % 0.5 %; Eosinophils # 0.2 10^3/uL (0.0-0.8); Eosinophils % 2.9 %; Hematocrit 44.4 % (37.0-47.0); Hemoglobin 14.9 g/dL (11.5-15.3); Lymphocytes # 1.8 10^3/uL (0.8-4.8); Lymphocytes % 23.8 %; Mean Corpuscular HGB Conc 33.6 g/dL (30.0-36.0); Mean Corpuscular Hemoglobin 31.4 pg (28.0-34.0); Mean Corpuscular Volume 93.7 fL (81-99); Mean Platelet Volume 9.6 fL (7.4-10.4); Monocytes # 0.5 10^3/uL (0.2-0.9); Monocytes % 7.1 %; Neutrophils # 4.97 10^3/uL (1.8-7.7); Neutrophils % 64.9 %; Nucleated Red Blood Cells % 0 %; Platelet Count 262 10^3/cmm (130-400); Red Blood Count 4.74 10^6/uL (4.1-5.3); Red Cell Distribution Width 11.4 % (12.1-15.1); White Blood Count 7.7 10^3/uL (4.0-10.0)
[2020-02-21 12:06] LABS: Urine Appearance SL Hazy (CLEAR); Urine Color Yellow (Yellow); pH Urine 5 (5-7)
[2020-02-21 12:07] LABS: Add Urine Microscopic? YES; Bilirubin Urine Neg (Negative); Blood Urine Neg (Negative); Glucose Urine UA Norm (Normal); Ketones Urine Negative (Negative); Leukocyte Esterase Urine 2+ (Negative); Nitrate Urine Negative (Negative); Protein Urine Neg (Negative); Urobilinogen Urine Norm (Negative)
[2020-02-21 12:15] LABS: Add Urine Culture? Yes; Alanine Aminotransferase 20 U/L (0-33); Albumin Level 4.6 g/dL (3.5-5.2); Alkaline Phosphatase 92 IU/L (35-105); Anion Gap 16.8 (5-19); Aspartate Amino Transferase 19 U/L (0-32); Bacteria Urine 1+ /hpf; Blood Urea Nitrogen 9 mg/dL (8-23); Calcium 9.5 mg/dL (8.5-10.5); Carbon Dioxide 22 mmol/L (22-29); Chloride 104 mmol/L (98-107); Creatinine Clr Calc Pharmacy 69.1097; Globulin 2.6 g/dL (1.3-4.6); Glomerular Filtration Rate 122.7 mL/min (90-130); Glucose 106 mg/dL (65-115); Osmolality Calculated 287 mOsm/kg (285-295); Potassium 3.8 mmol/L (3.5-5.1); Sodium 139 mmol/L (136-145); Squamous Epithelial Cell Urine 0-4 /hpf (0-5); Total Bilirubin 1.1 mg/dL (0.15-1.2); Total Protein 7.2 g/dL (6.6-8.7); WBC Urine 15-25 /hpf (0-5)
[2020-02-21 12:35] VITALS: BP 126/74; PULSE 86; RESP 18; O2SAT 94
[2020-02-21] MEDS: cefTRIAXone 1,000 MG in sodium chloride 0.9% (plus) 50 ML 100 MG IV (12:54)
[2020-02-21 13:35] VITALS: BP 129/74; PULSE 18; RESP 18; TEMP 36.6; O2SAT 95
== END 2020-02-21 13:41 | disposition home or self-care (01) ==
PROVIDERS: Emergency Provider Family Medicine; PCP Nurse Practitioner
DX: N20.0 Calculus of kidney (principal); N30.01 Acute cystitis with hematuria; Z79.82 Long term (current) use of aspirin; I10 Essential (primary) hypertension; E78.2 Mixed hyperlipidemia; Z87.891 Personal history of nicotine dependence
CPT/HCPCS: 12345; 74176; 80053; 81001; 85025; 87086; 96365; 99283; J0696

== ENCOUNTER 2020-03-04 13:23 | Outpatient (CLI) | payer OTHER, SELFPAY ==
--- NOTE | 2020-03-04 13:31 | XR_ITS ---
WS: [id number] Exam: XR KUB [id number] Date/Time of Exam: 03/04/2020 1:31 PM Reason For Exam: BILATERAL KIDNEY STONES No bowel obstruction or free air. Small calcification superimpose both renal silhouettes that could r epresent renal calculi. Visualized organ margins are intact. Nonspecific bilateral pelvic calcificati ons are noted. XR/XR KUB [id number] IMPRESSION: 1. No acute abdominal finding. 2. Small calcification superimpose both kidneys and may represent renal calculi .
== END 2020-03-04 13:24 | disposition home or self-care (01) ==
PROVIDERS: PCP Nurse Practitioner; Visit Provider Urology
DX: N20.0 Calculus of kidney (principal)
CPT/HCPCS: 74018; 81003

== ENCOUNTER → 2020-08-17 09:50 | Outpatient (BNVA) | payer MEDICARE, OTHER, SELFPAY | PROVIDERS: PCP Nurse Practitioner; Visit Provider Nurse Practitioner | DX: I10 Essential (primary) hypertension (principal); K21.9 Gastro-esophageal reflux disease without esophagitis; E78.2 Mixed hyperlipidemia; F41.9 Anxiety disorder, unspecified; E55.9 Vitamin D deficiency, unspecified; Z12.39 Encounter for other screening for malignant neoplasm of breast; K22.2 Esophageal obstruction | CPT/HCPCS: 80053; 80061; 81000; 82306; 84443; 85025 ==

== ENCOUNTER 2020-09-09 09:55 | Outpatient (CLI) | payer MEDICARE, OTHER, SELFPAY ==
--- NOTE | 2020-09-09 09:15 | XR_ITS ---
WS: [id number] KUB, AP view, 09/09/2020 Clinical Data: RENAL CALCULI Comparison: KUB, 03/04/2020. Findings: No abnormal intraabdominal masses are seen. There is no dilatated small bowel or evidence of obstruct ion. Small calcifications overlie both kidneys. There is a moderate amount of fecal material throughout th e colon. There is a mild levoscoliosis of the lumbar spine. XR/XR KUB [id number] Impression: Probable bilateral small renal calculi.
== END 2020-09-09 09:56 | disposition home or self-care (01) ==
LOC: RAD 10:00
PROVIDERS: PCP Nurse Practitioner; Visit Provider Urology
DX: N20.0 Calculus of kidney (principal); R31.0 Gross hematuria
CPT/HCPCS: 74018; 81003

== ENCOUNTER 2020-09-23 10:06 | Outpatient (CLI) | payer MEDICARE, OTHER, SELFPAY ==
--- NOTE | 2020-09-23 10:30 | MM_ITS ---
WS: [id number] Bilateral screening digital mammogram, 09/23/2020 Clinical Data: Z12.39 - Encounter for other screening for malignant neop... Comparison: None. Findings: The breast parenchymal pattern shows fat replacement. No spiculated masses or clustered calcification s are seen. There are no secondary signs of carcinoma. Mole markers are on both breasts. MM/[place] [id number] Impression: 1. Negative bilateral mammogram with no prior exams for review.. 2. Recommend annual screening mammograms. BIRADS: 1-Negative FOLLOW UP: 1 Year Follow-up The CAD checker stocker was used.
== END 2020-09-23 10:07 | disposition home or self-care (01) ==
LOC: RADSHAW 10:09
PROVIDERS: PCP Nurse Practitioner; Visit Provider Nurse Practitioner
DX: Z12.31 Encounter for screening mammogram for malignant neoplasm of breast (principal)
CPT/HCPCS: 77067

== ENCOUNTER → 2020-10-04 10:04 | Outpatient (BNVA) | payer MEDICARE, OTHER, SELFPAY | PROVIDERS: PCP Nurse Practitioner; Visit Provider Surgery | DX: Z20.822 Contact with and (suspected) exposure to COVID-19 (principal); Z01.812 Encounter for preprocedural laboratory examination | CPT/HCPCS: 87635 ==

== ENCOUNTER 2020-10-07 09:36 | Day surgery (SDC) | payer MEDICARE, OTHER, SELFPAY ==
--- NOTE | 2020-10-07 09:51 | ANES.PREANE2 ---
Pre-Anesthetic Assessment Pre-Anesthetic Assessment: Height/Weight: Height 1.65 m Weight 78.018 kg Preop Diagnosis: Left ureteral obstruction Proposed Procedure: Operation Date: 10/07/20 09:45 Proposed Procedures p EGD Dilation W/ Balloon 91139 12553 k22.2 z86.010(Not Applicable) - Luis Manuel Rashid MD s Colonoscopy(Not Applicable) - Luis Manuel Rashid MD Familial anesthetic complications: None Was Beta Dale taken within 24 hours: N/A Was Clonidine taken within 24 hours: N/A Last intake: > 8 hrs Social: Social History: Alcohol and Tobacco Comment: 4-5 beers a day Exam: Pre-Anes Outpt Exam: alert, oriented x 3, clear to auscultation bilaterally and regular rate & rhythm Airway: Cervical ROM: WNL MP: 2 Dentition: Full CV/HEM: CV/HEM: HTN GI: GI: GERD Comments: esophageal stricture Anesthetic Plan: ASA status: 2 Anesthesia: MAC Risk of > 500 ml blood loss (7ml/kg in children): No PFSH Anesthesia PFSH: Medical History Anxiety Esophageal stricture Essential hypertension GERD (gastroesophageal reflux disease) Mixed hyperlipidemia Renal calculi Vitamin D deficiency Surgical History H/O esophagogastroduodenoscopy History of bilateral tubal ligation age 36 History of colonoscopy with polypectomy 2013 History of hysterectomy for benign disease age 41 History of lithotripsy History of tonsillectomy age 19 Status post placement of ureteral stent Family History Sister Cancer breast Grandmother Myocardial infarct Grandfather Myocardial infarct Mother , at age 67 Complications, , surgical Father , at age 87 Hypertension Hyperlipidemia Social History Second hand smoke exposure: No Smoking risk assessment/counseling performed?: No Alcohol intake: current Alcohol intake frequency: 0-2 Drinks per Day Desire information about alcohol rehabilitation?: No Counseling given: No Desire information about substance/drug rehabilitation?: No Counseling given: No Adopted: No Caregiver/support person: No Lives independently: Yes Household members: spouse Housing: House Marital status: Number of children: 3 service: No Current occupational status: retired Current occupational exposures/hazards: No History of recent travel: No Current gender identity: Female Data Anesthesia Cardiac Studies: No Data to Display
[2020-10-07 10:24] VITALS: BP 122/90; PULSE 90; RESP 18; TEMP 36.7; O2SAT 96
[2020-10-07] MEDS: sodium chloride 0.9% 1,000 ML 30 ML IV ×2 (10:36→12:50)
[2020-10-07 13:26] VITALS: BP 106/68; PULSE 87; RESP 16; TEMP 36.8; O2SAT 95
[2020-10-07 13:32] VITALS: BP 118/65; PULSE 78; RESP 16; TEMP 36.7; O2SAT 95
--- NOTE | 2020-10-07 13:43 | P.HP_ITS ---
Same Day Surgery H&P Indication for Procedure/HPI DATE OF PROCEDURE: October 07, 2020 CHIEF COMPLAINT/INDICATIONFOR SURGICAL PROCEDURE: Dysphagia/colon polyps requiring EGD and colonoscopy PREOP DIAGNOSIS: upper gi symptoms PLANNED PROCEDRUE: Operation Date: 10/07/20 09:45 Proposed Procedures p EGD Dilation W/ Balloon [id number] k22.2 z86.010(Not Applicable) - Luis Manuel Rashid MD s Colonoscopy(Not Applicable) - Luis Manuel Rashid MD Medications/Allergies* Home Medications Medication Instructions Recorded Confirmed Type Vitamin D3 1 tab PO DAILY@199909/25/19 10/07/20 History glucosamine sulfate [Glucosamine] 500 mg PO DAILY@199909/25/19 10/07/20 History multivitamin [Multiple Vitamins] 1 tab PO DAILY@199909/25/19 10/07/20 History mupirocin 1 applic TOPICAL PRN PRN 09/25/19 10/07/20 History turmeric 400 mg PO DAILY@79909/25/19 10/07/20 History aspirin [Aspir-81] 81 mg PO DAILY@199902/21/20 10/05/20 History lactobacillus combination no.9 4 4,000 mmu cells PO DAILY 09/09/20 10/07/20 History billion cell capsule Allergies/Adverse Reactions Allergy/AdvReac Type Severity Reaction Status Date / Time No Known Allergies Allergy Verified 10/07/20 10:19 Current Medications: Generic Name Dose Route Start Last Admin Trade Name Freq PRN Reason Stop Dose Admin Sodium Chloride 1,000 mls @ 30 mls/hr 10/07/20 10:30 10/07/20 12:45 Sodium Chloride 0.9% IV 10/08/20 10:29 Infused .Q24H MALU Infusion Sodium Chloride 1,000 mls @ 30 mls/hr 10/07/20 12:30 10/07/20 12:50 Sodium Chloride 0.9% IV 30 mls/hr .Q24H MALU Administration Pertinent History/Comorbid Conditions* Medical History (Updated 08/27/20 @ 12:11 by Luis Manuel Rashid MD) Anxiety Esophageal stricture Essential hypertension GERD (gastroesophageal reflux disease) Mixed hyperlipidemia Renal calculi Vitamin D deficiency Surgical History (Updated 08/27/20 @ 12:11 by Luis Manuel Rashid MD) H/O esophagogastroduodenoscopy History of bilateral tubal ligation age 36 History of colonoscopy with polypectomy 2013 History of hysterectomy for benign disease age 41 History of lithotripsy History of tonsillectomy age 19 Status post placement of ureteral stent Family History (Updated 10/09/19 @ 10:41 by Adina Veras LPN) Father, at age 87 Mother, at age 67 Hyperlipidemia Father Myocardial infarct Grandmother Grandfather Complications, , surgical Mother Cancer Sister breast Hypertension Father Social History Second hand smoke exposure: No Smoking risk assessment/counseling performed?: No Alcohol intake: current Alcohol intake frequency: 0-2 Drinks per Day Desire information about alcohol rehabilitation?: No Counseling given: No Desire information about substance/drug rehabilitation?: No Counseling given: No Adopted: No Caregiver/support person: No Lives independently: Yes Household members: spouse Housing: House Marital status: Number of children: 3 service: No Current occupational status: retired Current occupational exposures/hazards: No History of recent travel: No Current gender identity: Female Pertinent Exam Findings alert, oriented x 3 and regular rate & rhythm Recommendations Surgery/Procedure today Coding Level of Care Code Acute Home Management Supervisor for Yesenia Chin
--- NOTE | 2020-10-07 15:00 | ANE.PACU2 ---
Inpatient post-anesthesia follow up: Airway intact: Yes Vital signs: Temperature 98.0 F Pulse Rate 78 Respiratory Rate 16 Blood Pressure 118/65 Pulse Oximetry 95 Oxygen Delivery Me thod Room Air Oxygen Flow Rate Fraction of Inspir ed Oxygen Hydration adequate: Yes Nausea and vomiting: No Pain level: 1 Mental status: Baseline
== END 2020-10-07 14:10 | disposition home or self-care (01) ==
PROVIDERS: PCP Nurse Practitioner; Visit Provider Surgery
PROC: 0DJD8ZZ Inspection of Lower Intestinal Tract, Via Natural or Artificial Opening Endoscopic (ICD-10-PCS; CPT 45378; 2020-10-07 09:45)
DX: Z86.010 Personal history of colon polyps (principal); R13.10 Dysphagia, unspecified; K22.2 Esophageal obstruction; K57.30 Diverticulosis of large intestine without perforation or abscess without bleeding; F41.9 Anxiety disorder, unspecified; I10 Essential (primary) hypertension; K21.9 Gastro-esophageal reflux disease without esophagitis; E78.2 Mixed hyperlipidemia; Z79.82 Long term (current) use of aspirin; E55.9 Vitamin D deficiency, unspecified
CPT/HCPCS: 43239; 43249; 45378; 88305; 96360; 96361; J2405; J2704; J7030

== ENCOUNTER 2020-11-10 08:20 | Outpatient (CLI) | payer MEDICARE, OTHER, SELFPAY ==
--- NOTE | 2020-11-10 08:30 | FL_ITS ---
WS: [email or web address] Gastrografin enema, 11/10/2020 Clinical Data: R31.0 - Gross hematuria/DIVERTICULITIS-NARROWING SIGMOID ON Comparison: None. Fluoroscopy time: 2.2 minutes. Findings: The preliminary film showed a levoscoliosis. Gastrografin was introduced in a retrograde fashion to fill the entire colon. There are numerous dive rticula throughout the colon. They were abundant in the proximal transverse colon, distal descending colon and the sigmoid colon. No strictures, masses or polyps were seen. Reflux into the terminal ileu m occurred. The post evacuation film was unremarkable. FL/FL enema w gastrografin [id number] Impression: 1. Numerous diverticula throughout the colon. 2. Negative for stricture, mass or definite polyp.
[2020-11-10] MEDS: diatrizoate meglumine 120 mL Sol PR ×5 (09:36→09:38)
== END 2020-11-10 08:21 | disposition home or self-care (01) ==
LOC: RAD 08:25
PROVIDERS: PCP Nurse Practitioner; Visit Provider Surgery
DX: R31.0 Gross hematuria (principal)
CPT/HCPCS: 74270

== ENCOUNTER → 2021-03-08 09:28 | Outpatient (BNVA) | payer MEDICARE, OTHER, SELFPAY | PROVIDERS: PCP Nurse Practitioner; Visit Provider Nurse Practitioner | DX: I10 Essential (primary) hypertension (principal) | CPT/HCPCS: 80053; 80061; 81000; 84443; 85025 ==

== ENCOUNTER 2021-05-31 11:07 | Outpatient (CLI) | payer MEDICARE, OTHER, SELFPAY ==
--- NOTE | 2021-05-31 11:20 | MM_ITS ---
WS: [email or web address] LEFT 3D TOMOSYNTHESIS DIGITAL MAMMOGRAPHY WITH CAD CLINICAL INFORMATION: N64.4 - Mastodynia HISTORY: Milky LEFT nipple discharge COMPARISON: September 23, 2020 TECHNIQUE: 5 views of the left breast were obtained. FINDINGS: Scattered fibroglandular densities of the left breast. No definite mammographic abnormality in the ar ea of palpable concern. Ultrasound of this area is pending. A few punctate calcifications. ULTRASOUND BREAST LEFT TECHNIQUE: Ultrasound left breast focused area of concern. CLINICAL INFORMATION: N64.4 - Mastodynia FINDINGS: Small hypoechoic lesion 9:00 at the areola measuring 2.1 x 1.6 x 3.4 mm is indeterminate. Recommend f urther evaluation with ultrasound-guided biopsy. Comparison RIGHT breast is unremarkable. MM/[place] [id number] IMPRESSION: BI-RADS: 4-Suspicious Finding-Biopsy Should Be Considered FOLLOW UP: US Guided Biopsy Recommended
== END 2021-05-31 11:08 | disposition home or self-care (01) ==
LOC: RADSHAW 11:13
PROVIDERS: PCP Nurse Practitioner; Visit Provider Nurse Practitioner
DX: N64.4 Mastodynia (principal); N64.89 Other specified disorders of breast
CPT/HCPCS: 76642; 77061

== ENCOUNTER → 2021-06-21 09:51 | Outpatient (BNVA) | payer MEDICARE, OTHER, SELFPAY | PROVIDERS: PCP Nurse Practitioner; Visit Provider Surgery | DX: K59.00 Constipation, unspecified (principal); N63.20 Unspecified lump in the left breast, unspecified quadrant | CPT/HCPCS: 99214 ==

== ENCOUNTER 2021-07-06 12:05 | Outpatient (CLI) | payer MEDICARE, OTHER, SELFPAY ==
--- NOTE | 2021-07-06 12:16 | US_ITS ---
WS: [email or web address] ULTRASOUND LEFT BREAST HISTORY: Hypoechoic nodule LEFT breast. COMPARISON: 05/31/2021 TECHNIQUE: 2-D and Doppler. Patient presents for possible biopsy of the 2 to 3 mm hypoechoic nodule at 9:00 near the areolar. Thi s is a very nonspecific nodule. No increased vascularity. I suspect this is probably a complex cyst. Due to its very small size and difficulty remaining on the lesion no biopsy will be performed. US/US breast LT limited* [id number] IMPRESSION: BI-RADS: 3-Probably Benign FOLLOW-UP: 6 Month Follow-up LEFT breast ultrasound follow-up in 6 months to reevaluate the nodule at 9:00. This is very small and nonspecific adnexa measures slightly smaller today than on the prior study.
== END 2021-07-06 12:06 | disposition home or self-care (01) ==
LOC: RAD 12:07
PROVIDERS: PCP Nurse Practitioner; Visit Provider Nurse Practitioner
DX: R92.8 Other abnormal and inconclusive findings on diagnostic imaging of breast (principal)
CPT/HCPCS: 19083; 76642

== ENCOUNTER → 2021-07-29 10:19 | Outpatient (BNVA) | payer MEDICARE, OTHER, SELFPAY | PROVIDERS: PCP Nurse Practitioner; Visit Provider Nurse Practitioner | DX: I10 Essential (primary) hypertension (principal); F41.9 Anxiety disorder, unspecified; E78.2 Mixed hyperlipidemia; K21.9 Gastro-esophageal reflux disease without esophagitis; K58.1 Irritable bowel syndrome with constipation | CPT/HCPCS: 80053; 80061; 82607; 84443; 85025 ==

== ENCOUNTER 2021-09-13 10:25 | Outpatient (CLI) | payer MEDICARE, OTHER, SELFPAY ==
--- NOTE | 2021-09-13 10:00 | XR_ITS ---
WS: [email or web address] KUB, AP view, 09/13/2021 Clinical Data: Ureteral Obstruction Comparison: KUB, 09/09/2020. Findings: No abnormal intraabdominal masses are seen. There is no dilatated small bowel or evidence of obstruct ion. There are small calcifications overlying both kidneys. There is fecal material throughout the colon w hich obscures detail over both kidneys. There is a levoscoliosis of the lumbar spine. There are phleb oliths in the true pelvis. XR/XR KUB [id number] Impression: Probable bilateral small renal calculi.
== END 2021-09-13 10:26 | disposition home or self-care (01) ==
LOC: RAD 10:27
PROVIDERS: PCP Nurse Practitioner; Visit Provider Urology
DX: N13.5 Crossing vessel and stricture of ureter without hydronephrosis (principal); N20.0 Calculus of kidney
CPT/HCPCS: G0463; 74018; 81003; 99213

== ENCOUNTER → 2022-01-06 09:20 | Outpatient (BNVA) | payer MEDICARE, OTHER, SELFPAY | PROVIDERS: PCP Nurse Practitioner; Visit Provider Nurse Practitioner | DX: I10 Essential (primary) hypertension (principal); K21.9 Gastro-esophageal reflux disease without esophagitis; E78.2 Mixed hyperlipidemia; F41.9 Anxiety disorder, unspecified; E55.9 Vitamin D deficiency, unspecified; Z23 Encounter for immunization | CPT/HCPCS: 80053; 80061; 82306; 84443 ==

== ENCOUNTER 2022-01-11 13:02 | Outpatient (CLI) | payer MEDICARE, OTHER, SELFPAY ==
--- NOTE | 2022-01-11 13:22 | US_ITS ---
WS: [email or web address] ULTRASOUND LEFT BREAST HISTORY: N63.20 - Unspecified lump in the left breast, unspecified... COMPARISON: 07/06/2021 TECHNIQUE: 2-D and Doppler. No change in the very small nodule in the LEFT breast at 9:00 near the areolar. Maximum diameter of 2 mm. There is an additional similar hypoechoic nodule maximum diameter of 2 mm at 1 cm from the nippl e. These are both cysts. No solid mass. No additional workup necessary. US/US breast LT limited* [id number] IMPRESSION: BI-RADS: 2-Benign FOLLOW-UP: See Report Patient to return to annual screening mammogram.
== END 2022-01-11 13:03 | disposition home or self-care (01) ==
LOC: RAD 13:03
PROVIDERS: PCP Nurse Practitioner; Visit Provider Nurse Practitioner
DX: N63.20 Unspecified lump in the left breast, unspecified quadrant (principal)
CPT/HCPCS: 76642

== ENCOUNTER → 2022-01-30 12:25 | Outpatient (BNVA) | payer MEDICARE, OTHER, SELFPAY | PROVIDERS: PCP Nurse Practitioner; Visit Provider Registered Nurse Neonatal Intensive Care | DX: N39.0 Urinary tract infection, site not specified (principal) | CPT/HCPCS: 81000; 87086 ==

== ENCOUNTER → 2022-02-13 08:50 | Outpatient (BNVA) | payer MEDICARE, OTHER, SELFPAY | PROVIDERS: PCP Nurse Practitioner; Visit Provider Nurse Practitioner | DX: N39.0 Urinary tract infection, site not specified (principal); I10 Essential (primary) hypertension; N20.0 Calculus of kidney | CPT/HCPCS: 81003 ==

== ENCOUNTER → 2022-06-22 11:49 | Outpatient (BNVA) | payer MEDICARE, OTHER, SELFPAY | PROVIDERS: PCP Nurse Practitioner; Visit Provider Nurse Practitioner | DX: I10 Essential (primary) hypertension (principal); K21.9 Gastro-esophageal reflux disease without esophagitis; E78.2 Mixed hyperlipidemia; F41.9 Anxiety disorder, unspecified; E55.9 Vitamin D deficiency, unspecified; Z78.0 Asymptomatic menopausal state; Z87.891 Personal history of nicotine dependence | CPT/HCPCS: 80053; 80061; 82306; 82607 ==

== ENCOUNTER 2022-07-06 10:34 | Outpatient (CLI) | payer MEDICARE, OTHER, SELFPAY ==
--- NOTE | 2022-07-06 10:30 | XR_ITS ---
WS: [email or web address] SCREENING DEXA SCAN TRUECar CLINICAL INFORMATION: Z78.0 - Asymptomatic menopausal state COMPARISON: None. FINDINGS: The L1-L4 bone mineral density measures 1.338 g/cm2. This corresponds to a T score score of 1.3 and Z score of 2.4. Left femoral neck bone mineral density measures 0.986 g/cm2. This corresponds to a T score of -0.2 an d Z score of 0.9. Right femoral neck bone mineral density measures 1.048 g/cm2. This corresponds to a T score 0.3of and Z score of 1.4. Mean femoral neck bone mineral density measures 1.017 g/cm2. This corresponds to a T score of 0.1 and Z score of 1.1. XR/XR DEXA axial skeleton* [id number] IMPRESSION: Normal bone mineralization. Patient's FRAX calculated 10 year probability for major osteoporotic fracture i s 11.3 % and osteoporotic hip fracture is 1.9%.
--- NOTE | 2022-07-06 12:45 | CT_ITS ---
WS: [email or web address] LDCT LUNG CANCER SCREENING TECHNIQUE: Noncontrast CT of the chest with coronal and sagittal reformatted images. CLINICAL INFORMATION: Z87.891 - Personal history of nicotine dependence COMPARISON: None. DLP: 88.59 mGy.cm DIvol: Mean CTDIvol: 2.00 (mGy) All CT scans at [facility] use at least one of these dose optimization techniques: automat ed exposure control; mA and/or kV adjustment per patient size (includes targeted exams where dose is matched to clinical indication); or iterative reconstruction. FINDINGS: Masslike goiter LEFT thyroid with substernal extension. This can be further evaluated ultrasound. Mil d LEFT to RIGHT mass effect on the trachea. Normal caliber thoracic aorta. Aortic and coronary calcif ication. No mediastinal or hilar lymphadenopathy. Small bilateral adrenal adenomas. Small moderate es ophageal hiatal hernia. Low-attenuation lesion RIGHT hepatic lobe likely hepatic cyst. Partially visualized cholelithiasis. Moderate thoracic kyphosis. Chronic anterior wedging in the mid thoracic spine. RIGHT upper lobe nodule measuring 9.5 mm. Slight bibasilar atelectasis. Tiny noncalci fied nodule LEFT lower lobe. CT/CT lung screening [id number] IMPRESSION: 1. 9.5 mm nodule RIGHT upper lobe. Recommend further evaluation with PET/CT. 2. Masslike goiter enlargement of the LEFT thyroid extending into the upper me diastinum. Recommend ultrasound. LUNG-RADS: 4BS-Suspicious with Significant Findings FOLLOW UP: PET/CT recommended
== END 2022-07-06 10:35 | disposition home or self-care (01) ==
PROVIDERS: PCP Nurse Practitioner; Visit Provider Nurse Practitioner
DX: Z78.0 Asymptomatic menopausal state (principal); Z87.891 Personal history of nicotine dependence; R91.1 Solitary pulmonary nodule
CPT/HCPCS: 71271; 77080

== ENCOUNTER 2022-07-28 12:59 | Outpatient (CLI) | payer MEDICARE, OTHER, SELFPAY ==
--- NOTE | 2022-07-28 13:15 | US_ITS ---
WS: [email or web address] Thyroid ultrasound, 07/28/2022 Clinical Data: E04.1 - Nontoxic single thyroid nodule Comparison: None. Findings: The right lobe of thyroid measures 3.2 cm x 1.8 cm x 1.6 cm. There is a nodule in the mid thyroid nato suring 1.00 x 1.34 x 1.35 cm of mixed echogenicity. The left lobe measures 6.9 cm x 5.0 cm x 4.7 cm. The isthmus measured 0.4 mm. The echotexture of the thyroid is asked. No nodules, cyst or masses are seen. US/US thyroid [id number] Impression: Multinodular goiter.
== END 2022-07-28 13:00 | disposition home or self-care (01) ==
LOC: RAD 13:04
PROVIDERS: PCP Nurse Practitioner; Visit Provider Nurse Practitioner
DX: E04.2 Nontoxic multinodular goiter (principal)
CPT/HCPCS: 76536

== ENCOUNTER 2022-08-05 06:12 | Outpatient (CLI) | payer MEDICARE, OTHER, SELFPAY ==
--- NOTE | 2022-08-05 | PETR_ITS ---
PROCEDURE INFORMATION: Exam: PET/CT Skull Base to Mid-thigh Exam date and time: 08/05/2022 12:55 PM Age: 71 years old Clinical indication: Abnormal findings; Solitary pulmonary nodule LABS AND CLINICAL REPORTS: Glucose: 110 mg/dl Treatment strategy for malignancy (PET staging): Initial Staging (PI) TECHNIQUE: Imaging protocol: Following at least four-hour fasting and following the injection of radiopharmaceutical, low dose CT images were obtained. Then, PET images were obtained. Attenuation corrected images were constructed using the CT scan. Fused images of PET and CT were reviewed. The standardized uptake values (SUV) reported below are maximum values within a region of interest, expressed in gm/ml. Exam includes orbital meatal line to mid-thigh. Radiopharmaceutical: 12.73 mCi F-18 FDG (Fluorodeoxyglucose), IV. Time of imaging post radiopharmaceutical administration: 1 hour Injection site: Left antecubital COMPARISON: CT lung screening [id number] 07/06/2022 10:42 AM, thyroid ultrasound 07/28/2022, CT abdomen and pelvis 02/11/2020 FINDINGS: Brain: Visualized brain has normal physiologic uptake. Pharynx: No abnormal uptake. Larynx: No abnormal uptake. Thyroid: Asymmetric enlargement of the left thyroid lobe is noted with mild asymmetric uptake, SUV max 3.3. This results in mild rightward deviation of the trachea at the thoracic inlet. Lungs, pleura and trachea: No abnormal uptake. An 8 mm upper lobe solid nodule is not radiotracer avid, SUV max 0.7 identified on series 3, image 41. No additional nodules are identified. Heart: Normal physiologic uptake. Mediastinal space: No abnormal uptake. Diaphragm: Small hiatal hernia. Liver: No abnormal uptake. A non radiotracer avid medial right liver lobe fluid density structure compatible with a cyst measures 2.3 cm in diameter on series 3, image 84. An additional low-density structure likely representing a cyst in the inferior right liver lobe on series 3, image 93 measures 1.2 cm in diameter. These structures are similar compared with the prior CT of 09/25/2019. Gallbladder and bile ducts: No abnormal uptake. Stones in the gallbladder are noted. Pancreas: No abnormal uptake. Spleen: No abnormal uptake. Adrenal glands: No abnormal uptake. Non radiotracer avid similar bilateral adrenal nodularity compared with 09/25/2019. Examples: A right adrenal nodule measuring 1.7 x 1.4 cm on series 3, image 88 is not radiotracer avid. A non radiotracer avid low-density left adrenal nodule measures 1.4 x 0.9 cm on series 3, image 88. Kidneys and ureters: Normal physiologic uptake. Small stones are noted in both kidneys. No hydronephrosis. Stomach and bowel: No abnormal uptake. There are scattered colonic diverticula. Vasculature: No abnormal uptake. Diffuse atherosclerotic changes are noted including within the coronary arteries. Lymph nodes: No abnormal uptake. No lymphadenopathy in the head, neck, chest, abdomen, pelvis, and extremities. Bones/joints: Diffuse degenerative changes in the spine are noted. Mild degenerative appearing T2-T3 disc space uptake is noted correlating with similar degenerative sclerosis of the endplates, SUV max 2.6. Soft tissues: No abnormal uptake in the visualized head, neck, chest, abdomen, pelvis, and extremities. METRICS: Mediastinal blood pool: SUV max 2.2 [facility] [id number] IMPRESSION: 1. A solid right upper lobe nodule is not radiotracer avid which favors a benign etiology. Consider 3 month follow-up chest CT for further surveillance. 2. Asymmetric enlargement of the left thyroid lobe similar to the prior ultrasound with low-level activity (SUV max 3.3). While neoplastic involvement cannot be entirely excluded this appearance may alternatively be related to thyroiditis. 3. Non radiotracer avid similar bilateral adrenal nodules likely representing adenomas. 4. Simple appearing cysts within the liver. 5. Nonobstructing bilateral nephrolithiasis. 6. Additional nonurgent findings as detailed above.
== END 2022-08-05 06:13 | disposition home or self-care (01) ==
LOC: RAD 08-07 06:12
PROVIDERS: PCP Nurse Practitioner; Visit Provider Nurse Practitioner
DX: R91.1 Solitary pulmonary nodule (principal); E04.9 Nontoxic goiter, unspecified; K76.89 Other specified diseases of liver; N20.0 Calculus of kidney
CPT/HCPCS: 78815; A9552

== ENCOUNTER → 2022-09-13 08:46 | Outpatient (BNVA) | payer MEDICARE, OTHER, SELFPAY | PROVIDERS: PCP Nurse Practitioner; Visit Provider Nurse Practitioner | DX: I10 Essential (primary) hypertension (principal); K21.9 Gastro-esophageal reflux disease without esophagitis; E78.2 Mixed hyperlipidemia; F41.9 Anxiety disorder, unspecified; E06.3 Autoimmune thyroiditis | CPT/HCPCS: 80053; 84443 ==

== ENCOUNTER 2022-11-14 11:00 | Outpatient (CLI) | payer MEDICARE, OTHER, SELFPAY ==
--- NOTE | 2022-11-14 11:00 | CT_ITS ---
WS: [email or web address] CT chest wo con [id number] HISTORY: R91.1 - Solitary pulmonary nodule TECHNIQUE: Axial imaging performed through the thorax. Coronal and sagittal reformats are submitted. All CT scans at [facility] use at least one of these dose optimization techniques: automated exposure control; mA and/or kV adjustment per patient size (includes targeted exams where dose is mat ched to clinical indication); or iterative reconstruction. CONTRAST: None DLP: 503.77 mGy.cm COMPARISON: 07/06/2022 Lungs and central airway: No interval increase in size of the well-circumscribed 9 mm noncalcified no dule in the RIGHT upper lobe. This nodule is PET/CT negative. Moderate pulmonary hyperexpansion. No n ew mass or nodule. Pleura: Normal. No pleural effusion. Heart and pericardium: Mild cardiomegaly. No effusion. Coronary artery calcifications. Mediastinum and cristy: No adenopathy. Enlarged LEFT thyroid extends substernal and contacts the LEFT l ateral trachea with deviation to the RIGHT. Vessels: Mild atherosclerosis aorta. Normal size aorta. Chest wall and lower neck: Patient has a known LEFT thyroid substernal goiter. Upper abdomen: Moderate-sized hiatal hernia. Mild bilateral adrenal nodularity and thickening. Hepati c cyst in the RIGHT lobe measures 3.0 cm. Mild perinephric stranding around the superior poles of eac h kidney. Nonobstructing calcification LEFT renal pelvis. Cholelithiasis. Osseous structures: Increase in thoracic kyphosis. IMPRESSION: 1. Stable noncalcified, PET/CT negative nodule RIGHT upper lobe. Nodule measures 9 mm with no increas e in size since 07/06/2022. 2. Centrilobular emphysema. 3. Large substernal LEFT thyroid goiter. 4. Moderate size hiatal hernia. 5. Bilateral adrenal nodularity, PET/CT negative.
== END 2022-11-14 11:01 | disposition home or self-care (01) ==
PROVIDERS: PCP Nurse Practitioner; Visit Provider Nurse Practitioner
DX: R91.1 Solitary pulmonary nodule (principal); J43.2 Centrilobular emphysema; E04.8 Other specified nontoxic goiter; K44.9 Diaphragmatic hernia without obstruction or gangrene
CPT/HCPCS: 71250

== ENCOUNTER → 2022-12-19 09:25 | Outpatient (BNVA) | payer MEDICARE, OTHER, SELFPAY | PROVIDERS: PCP Nurse Practitioner; Visit Provider Podiatrist Foot & Ankle Surgery | DX: M21.612 Bunion of left foot; M20.5X2 Other deformities of toe(s) (acquired), left foot; M76.822 Posterior tibial tendinitis, left leg | CPT/HCPCS: 73630; 99203 ==

== ENCOUNTER 2023-01-30 15:26 | Outpatient (CLI) | payer MEDICARE, OTHER, SELFPAY | END 2023-01-30 15:27 | disposition home or self-care (01) | LOC: SPT 15:26 | PROVIDERS: PCP Nurse Practitioner; Visit Provider Podiatrist Foot & Ankle Surgery | DX: Z46.89 Encounter for fitting and adjustment of other specified devices (principal); M79.673 Pain in unspecified foot; M21.612 Bunion of left foot; M76.822 Posterior tibial tendinitis, left leg; M20.5X2 Other deformities of toe(s) (acquired), left foot | CPT/HCPCS: 99213; L3030 ==

== ENCOUNTER → 2023-02-21 09:15 | Outpatient (BNVA) | payer MEDICARE, OTHER, SELFPAY | PROVIDERS: PCP Nurse Practitioner; Visit Provider Nurse Practitioner | DX: Z29.11 Encounter for prophylactic immunotherapy for respiratory syncytial virus (RSV) (principal); I10 Essential (primary) hypertension; E06.3 Autoimmune thyroiditis; K21.9 Gastro-esophageal reflux disease without esophagitis; E78.2 Mixed hyperlipidemia; F41.9 Anxiety disorder, unspecified; E55.9 Vitamin D deficiency, unspecified | CPT/HCPCS: 80053; 80061; 84443 ==

== ENCOUNTER → 2023-08-15 09:58 | Outpatient (BNVA) | payer MEDICARE, OTHER, SELFPAY | PROVIDERS: PCP Nurse Practitioner; Visit Provider Nurse Practitioner | DX: I10 Essential (primary) hypertension (principal); K21.9 Gastro-esophageal reflux disease without esophagitis; E06.3 Autoimmune thyroiditis; E78.2 Mixed hyperlipidemia; F41.9 Anxiety disorder, unspecified; M51.36 Other intervertebral disc degeneration, lumbar region | CPT/HCPCS: 80053; 80061; 82607; 84443; 85025 ==

== ENCOUNTER 2023-10-16 09:14 | Outpatient (CLI) | payer MEDICARE, OTHER, SELFPAY ==
--- NOTE | 2023-10-16 09:20 | MM_ITS ---
WS: [email or web address] BILATERAL 3D TOMOSYNTHESIS DIGITAL SCREENING MAMMOGRAPHY WITH CAD CLINICAL INFORMATION: Z12.31 - Encounter for screening mammogram for malignant ... HISTORY: Screening mammogram. No current complaints. COMPARISON: 2022 TECHNIQUE: Bilateral CC and MLO views. FINDINGS: Scattered fibroglandular densities bilaterally. No suspicious focal mass, asymmetry, calcifications, or architectural distortion. No evidence of malignancy. Incidental punctate and lucent centered calci fications. MM/[place] [id number] IMPRESSION: BI-RADS: 2-Benign FOLLOW UP: 1 Year Follow-up Recommend return to annual screening mammography.
== END 2023-10-16 09:15 | disposition home or self-care (01) ==
LOC: MOBLMAM 09:17
PROVIDERS: PCP Nurse Practitioner; Visit Provider Nurse Practitioner
DX: Z12.31 Encounter for screening mammogram for malignant neoplasm of breast (principal); R92.323 Mammographic fibroglandular density, bilateral breasts; R92.1 Mammographic calcification found on diagnostic imaging of breast
CPT/HCPCS: 77063; 77067

== ENCOUNTER → 2024-01-30 09:55 | Outpatient (BNVA) | payer MEDICARE, OTHER, SELFPAY | PROVIDERS: PCP Nurse Practitioner; Visit Provider Nurse Practitioner | DX: I10 Essential (primary) hypertension (principal); E78.2 Mixed hyperlipidemia; E06.3 Autoimmune thyroiditis | CPT/HCPCS: 80053; 80061; 84443; 85025 ==

== ENCOUNTER → 2024-07-09 08:58 | Outpatient (BNVA) | payer MEDICARE, OTHER, SELFPAY | PROVIDERS: PCP Nurse Practitioner; Visit Provider Nurse Practitioner | DX: E78.2 Mixed hyperlipidemia (principal); E55.9 Vitamin D deficiency, unspecified | CPT/HCPCS: 80053; 80061; 82306; 84443 ==

== ENCOUNTER 2024-07-18 12:28 | Outpatient (CLI) | payer MEDICARE, OTHER, SELFPAY ==
--- NOTE | 2024-07-18 12:45 | CT_ITS ---
WS: [email or web address] LDCT LUNG CANCER SCREENING HISTORY: Z87.891 - Personal history of nicotine dependence TECHNIQUE: Axial imaging performed from the apices to 1 cm below the costophrenic angles. Coronal and sagittal reformats are submitted with axial MIP series. All CT scans at [facility] use at least one of these dose optimization techniques: automated exposure control; mA and/or kV adjustment per patient size (includes targeted exams where dose is matched to clinical indication); or iterative reconstruction. DLP: 90.31 mGy.cm DIvol: Mean CTDIvol: 2.00 (mGy) COMPARISON: 11/14/2022, 07/06/2022 Diagnostic quality: Satisfactory Lungs: Mild centrilobular emphysema. Stable 8 mm round pulmonary nodule in the RIGHT upper lobe. Developing central calcification. This nodule was not negative on recent PET/CT. Chronic interstitial fibrosis in the periphery of the lungs. No new pulmonary nodules. No pneumonia. Heart: Normal size heart with no pericardial effusion.. Other findings: Mild atherosclerosis aorta. Normal size aorta and pulmonary artery. Reidentified is the enlarged low-attenuation LEFT thyroid nodule. By recent ultrasound this appears to be a diffusely enlarged gland with scattered cystic nodules. There is mass effect upon the trachea and the esophagus with displacement to the RIGHT. No adenopathy. Moderate size hiatal hernia. Stable bilateral adrenal nodules which are probably adenomas. Also negative on PET/CT. Hepatic cyst in the RIGHT lobe. Increase in thoracic kyphosis. Endplate sclerotic changes at multiple levels. CT/CT lung screening [id number] IMPRESSION: LUNG-RADS: 2S-Benign Appearance or Behavior with Significant Findings FOLLOW UP: 12 Month: Continue annual screening with LDCT OTHER FINDINGS (S MODIFIER): Enlarged LEFT thyroid. Ultrasound has been perform ed also and likely a goiter. There is mass effect upon the trachea and esophagu s with displacement to the RIGHT. Consider ENT evaluation.
--- NOTE | 2024-07-18 13:45 | US_ITS ---
WS: [email or web address] THYROID ULTRASOUND HISTORY: E06.3 - Autoimmune thyroiditis COMPARISON: 07/28/2022 Right lobe: 1.4 cm x 1.4 cm x 4.0 cm (w x ap x l). Volume: 3.9 cm3. Mildly enlarged heterogeneous thyroid with mild increased vascularity. There are few scattered hypoechoic nodules. Previously described complex cystic nodule in the mid gland appears smaller on today's exam. Nodule measures 5 x 5 x 7 mm. Left lobe: 4.1 cm x 5.9 cm x 8.2 cm (w x ap x l). Volume: 95.1 cm3. Markedly enlarged nodular heterogeneous gland with increased vascularity. Numerous scattered cystic nodules. Isthmus: 0.2 cm. US/US thyroid [id number] IMPRESSION: 1. Markedly enlarged heterogeneous LEFT thyroid lobe. Scattered cystic areas. No dominant nodule identified. 2. Stable RIGHT thyroid.
== END 2024-07-18 12:29 | disposition home or self-care (01) ==
PROVIDERS: PCP Nurse Practitioner; Visit Provider Nurse Practitioner
DX: Z12.2 Encounter for screening for malignant neoplasm of respiratory organs (principal); Z87.891 Personal history of nicotine dependence; E06.3 Autoimmune thyroiditis; R13.10 Dysphagia, unspecified; J43.2 Centrilobular emphysema; R91.1 Solitary pulmonary nodule; J84.10 Pulmonary fibrosis, unspecified; I70.0 Atherosclerosis of aorta; E04.2 Nontoxic multinodular goiter; R93.89 Abnormal findings on diagnostic imaging of other specified body structures; K44.9 Diaphragmatic hernia without obstruction or gangrene; E27.9 Disorder of adrenal gland, unspecified; K76.89 Other specified diseases of liver; M40.294 Other kyphosis, thoracic region; R93.7 Abnormal findings on diagnostic imaging of other parts of musculoskeletal system
CPT/HCPCS: 71271; 76536

== ENCOUNTER → 2024-08-14 09:25 | Outpatient (BNVA) | payer MEDICARE, OTHER, SELFPAY | PROVIDERS: PCP Nurse Practitioner; Visit Provider Nurse Practitioner Family | DX: L73.9 Follicular disorder, unspecified (principal); L73.8 Other specified follicular disorders; D22.39 Melanocytic nevi of other parts of face; L57.8 Other skin changes due to chronic exposure to nonionizing radiation; X32.XXXA Exposure to sunlight, initial encounter; L81.4 Other melanin hyperpigmentation; L82.1 Other seborrheic keratosis; L82.0 Inflamed seborrheic keratosis; L29.89 Other pruritus; R20.9 Unspecified disturbances of skin sensation; R20.8 Other disturbances of skin sensation; Z78.9 Other specified health status | CPT/HCPCS: 17110; 99204 ==

== ENCOUNTER 2024-09-03 14:13 | Outpatient (CLI) | payer MEDICARE, OTHER, SELFPAY ==
--- NOTE | 2024-09-03 14:18 | CT_ITS ---
WS: [email or web address] CT neck w con* [id number] REASON FOR EXAM: NON TOXIC MULTINODULAR GOITER IV CONTRAST ADMINISTERED: 100 mL of Omnipaque 350. TECHNIQUE: Following intravenous administration of contrast multiple axial images were obtained with coronal and sagittal reconstructions. TOTAL EXAM DLP: 194.[address] scans at use at least one of these dose optimization techniques: automated exposure control; mA and/or kV adjustment per patient size (includes targeted exams where dose is matched to clinical indication); or iterative reconstruction. FINDINGS: Significant degenerative spondylosis C5-C6 and C6-C7. No significant cervical adenopathy. Small reactive nodes noted. Bilaterally the parotid and submaxillary glands are normal without calculus or mass. The right lobe of the thyroid is of normal volume. There are 2 small subcentimeter areas of hypodensity in the upper right lobe of the thyroid. The left lobe of the thyroid is significantly enlarged by a complex mass that involves almost the entire left lobe. This lesion measures 7 cm in length and extends 2 cm below the sternal notch. The central portion of the lesion is heterogeneous but predominantly low-attenuation with small areas of intermediate echogenicity. The margins are isointense to normal thyroid with areas of both nodularity and thin rim-like configuration. The central low-attenuation portion of the lesion irregular shape and contour. CT/CT neck w con* [id number] IMPRESSION: Complex abnormality of the left lobe of the thyroid as described above. The marcio earance is reminiscent of a necrotic mass. On ultrasound the central portion is very fluid/cystic appearing. The [place] mar ginating the fluid like central portion are more complex on ultrasound than on the CT scan.This would be an unusual appearance post thyroiditis possibly. This could represent a large necrotic goitrous nodule. Fine-needle aspiration, if not previously performed, should be considered.
[2024-09-03] MEDS: iohexol 350 mg/mL 500 mL Btl (per mL) IV (14:38)
== END 2024-09-03 14:14 | disposition home or self-care (01) ==
LOC: RAD 14:15
PROVIDERS: PCP Nurse Practitioner; Visit Provider Specialist
DX: E04.2 Nontoxic multinodular goiter (principal); E03.8 Other specified hypothyroidism
CPT/HCPCS: 70491

== ENCOUNTER 2024-09-08 08:51 | Outpatient (CLI) | payer MEDICARE, OTHER, SELFPAY ==
--- NOTE | 2024-09-08 09:01 | FL_ITS ---
WS: [email or web address] Exam: FL barium swallow [id number] Date/Time of Exam: 09/08/2024 9:11 AM Reason For Exam: [id number] Fluoroscopy time: 1min [id number] minutes # of spot films: 5 Oropharyngeal phase of swallowing was normal. There is mild extrinsic narrowing of the posterior cervical esophagus at about the level of C5 which may be secondary to anterior cervical osteophytes or thickening of the anterior longitudinal ligament. No other significant narrowing was identified. No int rinsic esophageal mass identified. There is moderate tertiary spasm of the esophagus. No reflux was observed. FL/FL barium swallow [id number] IMPRESSION: 1. Mild posterior extrinsic compression along the cervical esophagus at about t he level of C5. This may be due to anterior osteophytes or ligamentous thickeni ng. No other levels of narrowing were identified. No intrinsic esophageal mass is seen. 2. Moderate tertiary spasm of the esophagus. No reflux.
== END 2024-09-08 08:52 | disposition home or self-care (01) ==
LOC: RAD 08:52
PROVIDERS: PCP Nurse Practitioner; Visit Provider Specialist
DX: E04.2 Nontoxic multinodular goiter (principal); E04.8 Other specified nontoxic goiter; K22.4 Dyskinesia of esophagus; K22.2 Esophageal obstruction
CPT/HCPCS: 74220

== ENCOUNTER → 2024-09-29 11:48 | Outpatient (BNVA) | payer MEDICARE, OTHER, SELFPAY | PROVIDERS: PCP Nurse Practitioner; Visit Provider Clinical Nurse Specialist Adult Health | DX: M54.9 Dorsalgia, unspecified (principal) | CPT/HCPCS: 81000; 87086 ==

== ENCOUNTER → 2024-12-17 09:19 | Outpatient (BNVA) | payer MEDICARE, OTHER, SELFPAY | PROVIDERS: PCP Nurse Practitioner; Visit Provider Nurse Practitioner | DX: E06.3 Autoimmune thyroiditis (principal) | CPT/HCPCS: 80053; 84443 ==